=== PATIENT | female | born 1985 | race African-American/Black ===

== ENCOUNTER 2017-01-03 09:28 | Emergency (ER) | payer OTHER ==
[~2017-01-03] VITALS: Ht 152.4 cm; Wt 100.0 kg
[2017-01-03 09:30] VITALS: BP 130/64; PULSE 68; RESP 20; TEMP 98.8; O2SAT 98
[2017-01-03 09:36] VITALS: BP 132/60; PULSE 87; RESP 18; O2SAT 98
[2017-01-03] MEDS ORDERED: PROMETHAZINE HCL 25 MG TAB PO ONE (09:45)
[2017-01-03] MEDS ORDERED: DOXY10TA PO (09:48)
[2017-01-03] MEDS ORDERED: PROM25TA10 PO (09:48)
--- NOTE | 2017-01-03 09:49 | PD ---
HPI Chief Complaint: Related Problem Time Seen by Provider: 09:36 Travel History International Travel<30 days: No Contact w/Intl Traveler<30days: No Traveled to known affect area: No History of Present Illness HPI Patient is a 31-year-old at approximately 10 weeks' gestational age based on early first trimester ultrasound here with complaint of nausea and vomiting. Patient has had hyperemesis with her previous pregnancies. States she is followed by FIELD SUPPORT REPRESENTATIVE Dr. Gallagher, who prescribe Zofran 4 mg every 6 hours. She has been taking this without much improvement and notes persistent nausea and vomiting. She has not had any abdominal pain, vaginal bleeding or leakage of fluid. PFSH Past Medical History Medical History: Denies Significant Hx Hx Anticoagulant Therapy: No Asthma: Yes (CHILDHOOD) Cardiovascular Problems: No Chemotherapy: No Cerebrovascular Accident: No Diabetes: No Diminished Hearing: No Respiratory: No Tetanus Vaccination: > 5 Years Influenza Vaccination: No ?: : 2 Para: 2 Miscarriage: 0 : 0 Ectopic : No Tubal Ligation: No Past Surgical History Surgical History: No Previous Surgery Genitourinary Surgery: Yes (BARTHOLIN CYST; SEEMS NOT TO HAVE BEEN REMOVED) Hysterectomy: No Social History Alcohol Use: No Tobacco Use: No Substance Use: No Allergies-Medications (Allergen,Severity, Reaction): Coded Allergies: No Known Allergies (Verified , 12/19/15) Reported Meds & Prescriptions Reported Meds & Active Scripts Active Diclegis (Doxylamine-Pyridoxine) 10-10 Mg Tab 1 Tab PO DIRECTED 30 Days 2 tab po hs day 1. If symptoms persist, 1 tab in am + 2 tab hs day 2. If symptoms persist, 1 tab in am + 1 tab noon + 2 tab hs day 3. Phenergan (Promethazine HCl) 25 Mg Tablet 25 Mg PO Q6H PRN Review of Systems Except as stated in HPI: all other systems reviewed are Neg Physical Exam Narrative GENERAL: Well-appearing female in no acute distress SKIN: Focused skin assessment warm/dry. HEAD: Normocephalic. EYES: No scleral icterus. No injection or drainage. ENT: Mucous membranes pink and moist. CARDIOVASCULAR: Regular rate and rhythm RESPIRATORY: No accessory muscle use. GASTROINTESTINAL: Abdomen soft, non-tender, nondistended. MUSCULOSKELETAL: Normal gait NEUROLOGICAL: Awake and alert. Normal speech. PSYCHIATRIC: Appropriate mood and affect; insight and judgment normal. Data Data Last Documented VS Vital Signs Date Time Temp Pulse Resp B/P Pulse Ox O2 Delivery O2 Flow Rate FiO2 01/03/17 09:36 87 18 132/60 98 Room Air 01/03/17 09:30 98.8 Orders Promethazine (Phenergan) (01/03/17 09:45) MDM Medical Decision Making Medical Screen Exam Complete: Yes Emergency Medical Condition: Yes Medical Record Reviewed: Yes Differential Diagnosis 31-year-old at approximately 10 weeks' gestational age here with complaint of nausea, vomiting. Differential includes associated nausea, hyperemesis gravidarum. She does not have any cyst and abdominal pain, fevers, chills or other systemic symptoms to suggest infection or peritoneal pathology. Narrative Course Patient given dose of oral Phenergan here with improvement of her symptoms. We' ll discharge to home with Phenergan, Diciglis alternating with Zofran when necessary for nausea vomiting outpatient BUN follow-up. Diagnosis Primary Impression: Hyperemesis gravidarum Referrals: Luis Felipe Gallagher MD call for appointment Additional Instructions: Zofran, Phenergan as needed for nausea and vomiting. Diclegis as prescribed. Follow-up with FIELD SUPPORT REPRESENTATIVE as discussed. Med/Other Pt SpecificInfo: Prescription(s) given Scripts Doxylamine-Pyridoxine (Diclegis)10-10 Mg Tab1 Tab PO DIRECTED 30 Days 2 tab po hs day 1. If symptoms persist, 1 tab in am + 2 tab hs day 2. If symptoms persist, 1 tab in am + 1 tab noon + 2 tab hs day 3. Prov:Clarita Rodriguez MD 01/03/17 Promethazine (Phenergan)25 Mg [id number] Mg PO Q6H PRN (NAUSEA OR VOMITING) #10 TAB Ref 0 Prov:Clarita Rodriguez MD 01/03/17 Disposition: 01 DISCHARGE HOME Condition: Stable Clarita Rodriguez MD Jan 03, 2017 09:49
== END 2017-01-03 10:22 | disposition home or self-care (01) ==
LOC: NEPD 09:28
DX: O21.0 Mild hyperemesis gravidarum (principal)
CPT/HCPCS: 99284; Q0169

== ENCOUNTER 2017-02-08 17:54 | Emergency (ER) | payer MEDICAID, OTHER ==
[~2017-02-08] VITALS: Ht 152.4 cm; Wt 78.0 kg
[~2017-02-08 17:54] MED LIST: DOXY10TA PO; PROM25TA10 PO
[2017-02-08 17:56] VITALS: BP 125/59; PULSE 78; RESP 20; TEMP 99; O2SAT 99
--- NOTE | 2017-02-08 18:15 | PD ---
HPI . right shoulder pain Chief Complaint: Pain: Acute or Chronic Time Seen by Provider: 18:14 Travel History International Travel<30 days: No Contact w/Intl Traveler<30days: No Traveled to known affect area: No History of Present Illness HPI 31-year-old female here with complaints of left shoulder pain, but is pointing to her right. When we asked her which shoulder, she once again pointed to her right but was telling me her left. I pointed that out to her and she tells me that several years ago she popped out her right shoulder and it has been hurting more than usual recently. Of note she is 15 weeks , . She tells me Tylenol is not helping her pain and she would like something stronger. She also wants to know if her shoulder is dislocated. PFSH Past Medical History Hx Anticoagulant Therapy: No Asthma: Yes (CHILDHOOD) Cardiovascular Problems: No Chemotherapy: No Cerebrovascular Accident: No Diabetes: No Diminished Hearing: No Respiratory: No : 2 Para: 2 Miscarriage: 0 : 0 Ectopic : No Tubal Ligation: No Past Surgical History Genitourinary Surgery: Yes (BARTHOLIN CYST; SEEMS NOT TO HAVE BEEN REMOVED) Hysterectomy: No Social History Alcohol Use: No Tobacco Use: No Substance Use: No Allergies-Medications (Allergen,Severity, Reaction): Coded Allergies: No Known Allergies (Verified , 12/19/15) Reported Meds & Prescriptions Reported Meds & Active Scripts Active Diclegis (Doxylamine-Pyridoxine) 10-10 Mg Tab 1 Tab PO DIRECTED 30 Days 2 tab po hs day 1. If symptoms persist, 1 tab in am + 2 tab hs day 2. If symptoms persist, 1 tab in am + 1 tab noon + 2 tab hs day 3. Phenergan (Promethazine HCl) 25 Mg Tablet 25 Mg PO Q6H PRN Review of Systems General / Constitutional: No: Fever Eyes: No: Visual changes HENT: No: Headaches Cardiovascular: No: Chest Pain or Discomfort Respiratory: No: Shortness of Breath Gastrointestinal: No: Abdominal Pain Genitourinary: No: Dysuria Musculoskeletal: Positive: Pain (right shoulder pain ) Skin: No Rash Neurologic: No: Weakness Psychiatric: No: Depression Endocrine: No: Polydipsia Hematologic/Lymphatic: No: Easy Bruising Physical Exam Narrative GENERAL: AAO x 3, no acute distress, Well-nourished, well-developed patient. SKIN: Warm and dry. No visible rashes or bruising. HEAD: Normocephalic and atraumatic. EYES: No scleral icterus. No injection or drainage. ENT: No nasal drainage noted. Mucous membranes pink. Airway patent. NECK: Supple, trachea midline. No JVD. CARDIOVASCULAR: Regular rate and rhythm without murmurs, gallops, or rubs. RESPIRATORY: Breath sounds equal bilaterally. No accessory muscle use. No rhonchi or rales. GASTROINTESTINAL:visual inspection normal EXTREMITIES: No cyanosis or edema. Can cross both arms across chest, ROM b/l shoulder normal. BACK: No obvious deformity. NEURO: CN II-12 intact, PSYCH: AAO x 3, normal affect. Data Data Last Documented VS Vital Signs Date Time Temp Pulse Resp B/P Pulse Ox O2 Delivery O2 Flow Rate FiO2 02/08/17 17:56 99.0 78 20 125/59 99 Room Air MDM Medical Decision Making Medical Screen Exam Complete: Yes Emergency Medical Condition: Yes Medical Record Reviewed: Yes Differential Diagnosis Acute on chronic shoulder pain, less likely dislocation, less likely fracture Narrative Course 31-year-old female here with acute on chronic shoulder pain. Patient appears comfortable and is in no distress. Examination is unremarkable. I advised her she can use Tylenol or speak with her COMPLIANCE ADVISOR about stronger pain medication. I've explained to her that ultimately there is nothing else I can do in the emergency room. She does not have a shoulder dislocation and does not require further treatment. Patient verbalized understanding of instructions, questions were answered, and thanked me for their care. I advised them if their condition worsens, please return to the nearest emergency room for further care. Diagnosis Primary Impression: Shoulder pain, right Qualified Code: M25.511 - Chronic right shoulder pain Patient Instructions: General Instructions Additional Instructions: Follow-up with her primary care provider. Follow-up with your COMPLIANCE ADVISOR. Med/Other Pt SpecificInfo: No Change to Meds Disposition: 01 DISCHARGE HOME Condition: Stable Mar Urbina Feb 08, 2017 18:15
== END 2017-02-08 18:37 | disposition home or self-care (01) ==
LOC: NEPK 17:54
DX: O26.899 Other specified pregnancy related conditions, unspecified trimester (principal); M25.511 Pain in right shoulder; G89.29 Other chronic pain; J45.909 Unspecified asthma, uncomplicated; Z79.899 Other long term (current) drug therapy; Z3A.15 15 weeks gestation of pregnancy
CPT/HCPCS: 99282

== ENCOUNTER 2017-02-25 12:13 | Emergency (ER) | payer MEDICAID ==
[~2017-02-25] VITALS: Ht 152.4 cm; Wt 100.0 kg
[2017-02-25 12:23] VITALS: BP 108/57; PULSE 68; RESP 16; TEMP 98.4; O2SAT 100
[2017-02-25] MEDS ORDERED: DOCO200C (12:33)
[2017-02-25] MEDS ORDERED: SODIUM CHLOR 0.9% 1000 ML INJ 1,000 ML IV ONE (12:45)
--- NOTE | 2017-02-25 12:50 | PD ---
HPI Chief Complaint: Related Problem Time Seen by Provider: 12:30 Travel History International Travel<30 days: No Contact w/Intl Traveler<30days: No Traveled to known affect area: No History of Present Illness HPI This is a 31-year-old female who presents to the emergency department 17 weeks not feeling well. She says that at work her lower abdomen started to cramp and she started to feel lightheaded, moderate severity, constant. She says she's been having these symptoms for 3 weeks. She told her machine pan greaser about it. He didn't say much. She says during her second she also had similar symptoms. She just says she feels really tired and doesn't feel well. She denies any vaginal bleeding, dysuria, diarrhea, vaginal discharge or fever PFSH Past Medical History Hx Anticoagulant Therapy: No Asthma: Yes (CHILDHOOD) Cardiovascular Problems: No Chemotherapy: No Cerebrovascular Accident: No Diabetes: No Diminished Hearing: No Respiratory: No ?: LMP: 17 WEEKS : 3 Para: 2 Miscarriage: 0 : 0 Ectopic : No Tubal Ligation: No Past Surgical History Genitourinary Surgery: Yes (BARTHOLIN CYST; SEEMS NOT TO HAVE BEEN REMOVED) Hysterectomy: No Social History Alcohol Use: No Tobacco Use: No Substance Use: No Allergies-Medications (Allergen,Severity, Reaction): Coded Allergies: No Known Allergies (Verified , 02/25/17) Reported Meds & Prescriptions Reported Meds & Active Scripts Active Diclegis (Doxylamine-Pyridoxine) 10-10 Mg Tab 1 Tab PO DIRECTED 30 Days 2 tab po hs day 1. If symptoms persist, 1 tab in am + 2 tab hs day 2. If symptoms persist, 1 tab in am + 1 tab noon + 2 tab hs day 3. Reported Dha (Docosahexaenoic Acid) 200 Mg Cap Review of Systems Except as stated in HPI: all other systems reviewed are Neg Physical Exam Narrative GENERAL:Well appearing, no acute distress SKIN: Focused skin assessment warm and dry. HEAD: Atraumatic. Normocephalic. EYES: Pupils equal and round. No injection or drainage. ENT: Moist mucous membranes NECK: Trachea midline. CARDIOVASCULAR: Regular rate and rhythm. No murmur appreciated. RESPIRATORY: Clear to auscultation. Breath sounds equal bilaterally. GASTROINTESTINAL: Abdomen soft, mildly tender to palpation in the lower abdomen with no rebound or guarding. MUSCULOSKELETAL: No obvious deformities. NEUROLOGICAL: Awake and alert. No obvious cranial nerve deficits. Moving all extremities. PSYCHIATRIC: Appropriate mood and affect; insight and judgment normal. Data Data Last Documented VS Vital Signs Date Time Temp Pulse Resp B/P Pulse Ox O2 Delivery O2 Flow Rate FiO2 02/25/17 12:23 98.4 68 16 108/57 100 Orders Complete Blood Count With Diff (02/25/17 12:40) Comprehensive Metabolic Panel (02/25/17 12:40) ^ Insert Iv (02/25/17 12:40) Sodium Chlor 0.9% 1000 Ml Inj (Ns 1000 M (02/25/17 12:45) Urinalysis - C+S If Indicated (02/25/17 12:40) Ed Poc Ultrasound (02/25/17 ) Labs Laboratory Tests Test 02/25/17 12:50 White Blood Count 11.9 TH/MM3 Red Blood Count 3.89 MIL/MM3 Hemoglobin 11.7 GM/DL Hematocrit 35.3 % Mean Corpuscular Volume 90.7 FL Mean Corpuscular Hemoglobin 30.0 PG Mean Corpuscular Hemoglobin 33.1 % Concent Red Cell Distribution Width 13.4 % Platelet Count 342 TH/MM3 Mean Platelet Volume 8.0 FL Neutrophils (%) (Auto) 63.3 % Lymphocytes (%) (Auto) 28.7 % Monocytes (%) (Auto) 5.6 % Eosinophils (%) (Auto) 2.0 % Basophils (%) (Auto) 0.4 % Neutrophils # (Auto) 7.6 TH/MM3 Lymphocytes # (Auto) 3.4 TH/MM3 Monocytes # (Auto) 0.7 TH/MM3 Eosinophils # (Auto) 0.2 TH/MM3 Basophils # (Auto) 0.0 TH/MM3 CBC Comment DIFF FINAL Differential Comment Urine Color YELLOW Urine Turbidity CLEAR Urine pH 6.0 Urine Specific Usk 1.031 Urine Protein NEG mg/dL Urine Glucose (UA) NEG mg/dL Urine Ketones NEG mg/dL Urine Occult Blood NEG Urine Nitrite NEG Urine Bilirubin NEG Urine Leukocyte Esterase NEG Urine RBC 0-3 /hpf Urine WBC 0-2 /hpf Urine Squamous Epithelial 0-5 /hpf Cells Urine Amorphous Sediment FEW Urine Bacteria FEW /hpf Microscopic Urinalysis Comment CULT NOT INDICATED Sodium Level 140 MEQ/L Potassium Level 3.8 MEQ/L Chloride Level 107 MEQ/L Carbon Dioxide Level 24.0 MEQ/L Anion Gap 9 MEQ/L Blood Urea Nitrogen 8 MG/DL Creatinine 0.60 MG/DL Estimat Glomerular Filtration 140 ML/MIN Rate Random Glucose 69 MG/DL Calcium Level 9.0 MG/DL Total Bilirubin 0.3 MG/DL Aspartate Amino Transf 14 U/L (AST/SGOT) Alanine Aminotransferase 19 U/L (ALT/SGPT) Alkaline Phosphatase 60 U/L Total Protein 7.1 GM/DL Albumin 2.8 GM/DL MDM Medical Decision Making Medical Screen Exam Complete: Yes Emergency Medical Condition: Yes Interpretation(s) Afebrile, no tachycardia, normotensive Mild leukocytosis Electrolytes are reassuring Urinalysis: Few bacteria Differential Diagnosis Dehydration, electrolyte abnormality, urinary tract infection Narrative Course This is a 31-year-old female who presents to the emergency department with fatigue, lightheadedness and abdominal discomfort in the setting of . She says she's been having these symptoms for 3 weeks and she had them in her prior as well. I don't suspect a surgical etiology for her symptoms and she is quite well-appearing. Labs are obtained which are reassuring. She does have a few bacteria on urinalysis so I'll treat her with antibiotics. She is given a liter of fluids and feels much better. I think she can be discharged home to follow up with her machine pan greaser. Procedures Procedure Narrative [id number] ultrasound: Active intrauterine fetus with a heart rate of 132 Diagnosis Primary Impression: Qualified Code: Z3A.17 - 17 weeks gestation of Additional Impression: Asymptomatic bacteriuria Patient Instructions: General Instructions Additional Instructions: If you develop fever, persistent vomiting, back pain, or inability to eat return to the emergency department as your urine infection may have progressed to a kidney infection. Complete your antibiotics as prescribed. Stay well hydrated with Gatorade or water. Followup with your primary care physician in 2-3 days if your symptoms have not resolved. Med/Other Pt SpecificInfo: Prescription(s) given Scripts Cephalexin (Keflex)500 Mg [id number] Mg PO Q12H 7 Days Ref 0 Prov:Isabel Young MD 02/25/17 Disposition: 01 DISCHARGE HOME Condition: Stable Isabel Young MD Feb 25, 2017 12:50
[2017-02-25 12:58] LABS: AUTOMATED NEUTROPHIL # 7.6 TH/MM3 (1.8-7.7); BASOPHIL % 0.4 % (0.0-2.0); EOSINOPHIL # 0.2 TH/MM3 (0-0.4); HEMATOCRIT 35.3 % (35.0-46.0); LYMPH % 28.7 % (9.0-44.0); LYMPHOCYTE # 3.4 TH/MM3 (1.0-4.8); MEAN CELL VOLUME 90.7 FL (80.0-100.0); MEAN CORPUSCULAR HGB CONC 33.1 % (32.0-36.0); MONO % 5.6 % (0.0-8.0); NEUT % 63.3 % (16.0-70.0); PLATELET COUNT 342 TH/MM3 (150-450); RED BLOOD COUNT 3.89 MIL/MM3 (4.00-5.30); RED CELL DISTRIBUTION WIDTH 13.4 % (11.6-17.2); WHITE BLOOD COUNT 11.9 TH/MM3 (4.0-11.0)
[2017-02-25 13:05] LABS: BLOOD, URINE NEG (NEG); GLUCOSE,URINE NEG (NEG); KETONE, URINE NEG (NEG); NITRITE,URINE NEG (NEG)
[2017-02-25 13:06] LABS: CHLORIDE 107 MEQ/L (98-107); HEMO FLAGS DIFF FINAL; POTASSIUM 3.8 MEQ/L (3.5-5.1); SODIUM (NA) 140 MEQ/L (136-145)
[2017-02-25 13:10] LABS: URINE COLOR YELLOW (YELLW/STRAW)
[2017-02-25 13:11] LABS: BACTERIA, URINE FEW /hpf; COMMENT (UR) CULT NOT INDICATED; CULTURE IF INDICATED CULT NOT INDICATED; RBC, URINE 0-3 /hpf (0-3); SQUAMOUS EPITHELIAL CELL URINE 0-5 /hpf (0-5); WBC, URINE 0-2 /hpf (0-5)
[2017-02-25 13:13] LABS: ANION GAP 9 MEQ/L (5-15); BLOOD UREA NITROGEN 8 MG/DL (7-18)
[2017-02-25 13:16] LABS: ALT (GPT) 19 U/L (10-53); AST (GOT) 14 U/L (15-37); GLOMERULAR FILTRATION RATE 140 ML/MIN (>89)
[2017-02-25 13:17] LABS: TOTAL BILIRUBIN ADULT 0.3 MG/DL (0.2-1.0)
[2017-02-25 13:19] LABS: ALKALINE PHOSPHATASE 60 U/L (45-117)
[2017-02-25] MEDS ORDERED: CEPH-460 PO (13:33)
== END 2017-02-25 13:47 | disposition home or self-care (01) ==
LOC: PHED 12:13
DX: O26.892 Other specified pregnancy related conditions, second trimester (principal); R82.71 Bacteriuria; R42 Dizziness and giddiness; Z3A.17 17 weeks gestation of pregnancy
CPT/HCPCS: 80053; 81001; 85025; 96360; 99284; J7030

== ENCOUNTER 2017-04-15 10:33 | Emergency (ER) | payer MEDICAID ==
[~2017-04-15 10:33] MED LIST changes: +CEPH-460 PO; +DOCO200C; -PROM25TA10 PO
[2017-04-15] MEDS ORDERED: LACTATED RINGER'S 1000 ML INJ 1,000 ML IV SCH (11:12)
[2017-04-15] MEDS ORDERED: ONDANSETRON HCL 4 MG/2 ML VIAL IV ONE (11:15)
[2017-04-15] MEDS ORDERED: PROM25TA10 PO (11:21)
[2017-04-15] MEDS ORDERED: PROM1SUP7 RECTAL (11:21)
--- NOTE | 2017-04-15 11:22 | PD ---
HPI Chief Complaint Cramping pain lower abdominal and low back pain nausea and vomiting Date Seen: Apr 15, 2017 Time Seen: 11:10 Travel History International Travel<30 Days: No Contact w/Intl Traveler<30Days: No Known Affected Area: No History of Present Illness HPI Patient is 32-year-old black female [address] Gallagher for care she presents complaining of long-term lower abdominal pain and cramping for months and also lower back pain long-term but today and yesterday particularly bad. She denies leakage or bleeding. The heart tones are reactive she is not adolfo, urine dip is negative, significant nausea and vomiting throughout her is unlikely just at home that's her only medication. She tried some Tylenol as well as home today Weeks Gestation: 24 Para: 2 : 3 History Obstetric History Obstetric History 2 vaginal deliveries Social History Alcohol Use: No Tobacco Use: No Substance Abuse: No Allergies-Medications (Allergen,Severity, Reaction): Coded Allergies: No Known Allergies (Verified , 02/25/17) Home Meds Active Scripts Cephalexin (Keflex) 500 Mg Cap, 500 MG PO Q12H for Infection for 7 Days, CAP 0 Refills Prov:Isabel Young MD 02/25/17 Doxylamine-Pyridoxine (Diclegis) 10-10 Mg Tab, 1 TAB PO DIRECTED for 30 Days 2 tab po hs day 1. If symptoms persist, 1 tab in am + 2 tab hs day 2. If symptoms persist, 1 tab in am + 1 tab noon + 2 tab hs day 3. Prov:Clarita Rodriguez MD 01/03/17 Reported Medications Docosahexaenoic Acid ( Dha) 200 Mg Cap 02/25/17 Review of Systems General / Constitutional: No: Fever, Weight Gain, Chills, Other Eyes: No: Diploplia, Blurred Vision, Visual changes, Pain, Photophobia HENT: No: Headaches, Vertigo, Lightheadedness Cardiovascular: No: Irregular Rhythm, Chest Pain or Discomfort, Palpitations, Tachycardia, Syncope, Varicosities, Edema, Cyanosis Respiratory: No: Cough, Short of Breath, Other Gastrointestinal: Nausea, Vomiting, Abdominal Pain, No: Diarrhea Genitourinary: No: Decreased Urinary Output, Oliguria Musculoskeletal: No: Limited ROM, Weakness, Cramping, Edema, Pain Skin: No Rash, No Itching, No Dryness, No Lumps, No Change in Pigmentation, No Change in Nails, No Alopecia, No Lesions Neurologic: No: Weakness, Dizziness, Syncope, Focal Abnormalities, Coordination Problem, Headache, Slurred Speech, Seizures Psychiatric: No: Depression, Suicidal Ideations, Homicidal Ideation Endocrine: No: Heat Intolerance, Cold Intolerance, Polydipsia, Polyuria, Other Physical Exam Narrative GENERAL: Well-nourished, well-developed patient. SKIN: Warm and dry. HEAD: Normocephalic and atraumatic. EYES: No scleral icterus. No injection or drainage. ENT: No nasal drainage noted. Mucous membranes pink. Airway patent. NECK: Supple, trachea midline. No JVD. CARDIOVASCULAR: Regular rate and rhythm without murmurs, gallops, or rubs. RESPIRATORY: Breath sounds equal bilaterally. No accessory muscle use. BREASTS: Bilateral exam showed no masses , no retractions, no nipple discharge. ABDOMEN/GI: Abdomen soft, non-tender, bowel sounds present, no rebound, no guarding Gravid to [-24] weeks size Fundal Height: [24-] GENITOURINARY: External Genitalia: intact and normal in appearance BUS glands: [-] Cervix: [-] Dilatation: [Closed-] Effacement: [-] Thick Station: [-3] -] Membranes: [intact ] Uterine Contractions: [none-] FHT's: Category: [1-] Baseline: [133-] Reactive: [yes-] Variability: [-mod] Decels: [-none] EXTREMITIES: No cyanosis or edema. BACK: Nontender without obvious deformity. No CVA tenderness. NEUROLOGICAL: Awake and alert. Motor and sensory grossly within normal limits. Five out of 5 muscle strength in all muscle groups. Normal speech. Data Data Orders Orders Vital Signs (Adult) .ON ADMISSION (04/15/17 11:12) ^ Labor Status (04/15/17 11:12) Lactated Ringer's 1000 Ml Inj (Lr 1000 M (04/15/17 11:12) Ondansetron Inj (Zofran Inj) (04/15/17 11:15) Fentanyl Inj (Fentanyl Inj) (04/15/17 11:15) Labs Urine dip positive for ketones otherwise negative MDM Interpretation(s) Patient is 32-year-old black female at 24 weeks presents complaining of lower abdominal pain and low back pain and nausea and vomiting. She has no bleeding or leakage of fluid no contractions and heart rate is reactive, cervix is closed thick and high, urinalysis is negative on dipstick, patient's had the similar cramps and low back pain the whole assisted was little worse yesterday. She took some Tylenol and did not get better Plan Plan is IV hydrate IV Zofran. The patient wants pain medication she'll find a ride home she drove herself to the hospital. Home prescriptions for Phenergan by mouth and suppository. Upper follow-up with Dr. Gallagher in the usual fashion sooner when necessary symptoms Diagnosis Diagnosis: Primary Impression: Abdominal pain during in second trimester Additional Impression: Nausea and vomiting of , antepartum Disposition: 01 DISCHARGE HOME Condition: Stable Scripts Promethazine Supp (Phenergan Supp) 25 Mg Supp 25 MG RECTAL Q6H Y for NAUSEA OR VOMITING, #6 SUPP 0 Refills Prov: Emmanuel Pineda II, MD 04/15/17 Promethazine (Phenergan) 25 Mg Tablet 25 MG PO Q6H Y for NAUSEA OR VOMITING, #30 TAB 0 Refills Prov: Emmanuel Pineda II, MD 04/15/17 Emmanuel Pineda II, MD Apr 15, 2017 11:22
== END 2017-04-15 12:10 | disposition home or self-care (01) ==
LOC: HOBED 10:33
DX: O21.9 Vomiting of pregnancy, unspecified (principal); R10.30 Lower abdominal pain, unspecified; M54.5 Low back pain
CPT/HCPCS: 96374; 99284; J2405; J7120

== ENCOUNTER 2017-04-28 18:56 | Emergency (ER) | payer MEDICAID ==
[~2017-04-28 18:56] MED LIST changes: +PROM1SUP7 RECTAL; +PROM25TA10 PO
--- NOTE | 2017-04-28 19:43 | PD ---
HPI Chief Complaint Patient fell at home against the bathtub Date Seen: Apr 28, 2017 Time Seen: 19:25 Travel History International Travel<30 Days: No Contact w/Intl Traveler<30Days: No Known Affected Area: No History of Present Illness HPI Patient is 32-year-old black female at [address] Gallagher she presents after having fallen at home and hit her side against the bathtub. She has had some tenderness now but has had no bleeding or leakage of fluid. heart tones are within normal limits 26 weeks sees a little hard to monitor. No contractions seen Weeks Gestation: 26 Para: 2 : 3 History Obstetric History Obstetric History 2 vaginal deliveries Social History Alcohol Use: No Tobacco Use: No Substance Abuse: No Allergies-Medications (Allergen,Severity, Reaction): Coded Allergies: No Known Allergies (Verified , 02/25/17) Home Meds Active Scripts Promethazine Supp (Phenergan Supp) 25 Mg Supp, 25 MG RECTAL Q6H Y for NAUSEA OR VOMITING, #6 SUPP 0 Refills Prov:Emmanuel Pineda II, MD 04/15/17 Promethazine (Phenergan) 25 Mg Tablet, 25 MG PO Q6H Y for NAUSEA OR VOMITING, # 30 TAB 0 Refills Prov:Emmanuel Pineda II, MD 04/15/17 Cephalexin (Keflex) 500 Mg Cap, 500 MG PO Q12H for Infection for 7 Days, CAP 0 Refills Prov:Isabel Young MD 02/25/17 Doxylamine-Pyridoxine (Diclegis) 10-10 Mg Tab, 1 TAB PO DIRECTED for 30 Days 2 tab po hs day 1. If symptoms persist, 1 tab in am + 2 tab hs day 2. If symptoms persist, 1 tab in am + 1 tab noon + 2 tab hs day 3. Prov:Clarita Rodriguez MD 01/03/17 Reported Medications Docosahexaenoic Acid ( Dha) 200 Mg Cap 02/25/17 Review of Systems General / Constitutional: No: Fever, Weight Gain, Chills, Other Eyes: No: Diploplia, Blurred Vision, Visual changes, Pain, Photophobia HENT: No: Headaches, Vertigo, Lightheadedness Cardiovascular: No: Irregular Rhythm, Chest Pain or Discomfort, Palpitations, Tachycardia, Syncope, Varicosities, Edema, Cyanosis Respiratory: No: Cough, Short of Breath, Other Gastrointestinal: No: Nausea, Vomiting, Diarrhea Genitourinary: No: Decreased Urinary Output, Oliguria Musculoskeletal: No: Limited ROM, Weakness, Cramping, Edema, Pain Skin: No Rash, No Itching, No Dryness, No Lumps, No Change in Pigmentation, No Change in Nails, No Alopecia, No Lesions Neurologic: No: Weakness, Dizziness, Syncope, Focal Abnormalities, Coordination Problem, Headache, Slurred Speech, Seizures Psychiatric: No: Depression, Suicidal Ideations, Homicidal Ideation Endocrine: No: Heat Intolerance, Cold Intolerance, Polydipsia, Polyuria, Other Physical Exam Narrative GENERAL: Well-nourished, well-developed obese patient. SKIN: Warm and dry. HEAD: Normocephalic and atraumatic. EYES: No scleral icterus. No injection or drainage. ENT: No nasal drainage noted. Mucous membranes pink. Airway patent. NECK: Supple, trachea midline. No JVD. CARDIOVASCULAR: Regular rate and rhythm without murmurs, gallops, or rubs. RESPIRATORY: Breath sounds equal bilaterally. No accessory muscle use. BREASTS: Bilateral exam showed no masses , no retractions, no nipple discharge. ABDOMEN/GI: Abdomen soft, non-tender, bowel sounds present, no rebound, no guarding Gravid to [26-] weeks size Fundal Height: [-26] GENITOURINARY: Membranes: [intact ] Uterine Contractions: [-none] FHT's: Category: [1-] Baseline: [133-] Reactive: [-yes for 26 weeks] Variability: [-mod] Decels: [-0] EXTREMITIES: No cyanosis or edema. BACK: Nontender without obvious deformity. No CVA tenderness. NEUROLOGICAL: Awake and alert. Motor and sensory grossly within normal limits. Five out of 5 muscle strength in all muscle groups. Normal speech. MDM Interpretation(s) Patient is 32-year-old black female at 26 weeks who fell at home with this evening and hit her side against the bathtub. She has tenderness on that side but otherwise no other injury, there is no bruising ,breakage of the skin, lesions seen. heart rate is reactive at 26 weeks. No contractions seen Plan Plan is to observe for 1 hour and if the baby looks with THE MONITOR DURING THAT TIME WILL DISCHARGE HOME TO [facility]EDREST Diagnosis Diagnosis: Primary Impression: Fall Additional Impression: 26 weeks gestation of Disposition: 01 DISCHARGE HOME Condition: Stable Emmanuel Pineda II, MD Apr 28, 2017 19:43
== END 2017-04-28 20:30 | disposition home or self-care (01) ==
LOC: HOBED 18:56
DX: O9A.212 Injury, poisoning and certain other consequences of external causes complicating pregnancy, second trimester (principal); W18.09XA Striking against other object with subsequent fall, initial encounter; Y92.002 Bathroom of unspecified non-institutional (private) residence as the place of occurrence of the external cause; Z3A.26 26 weeks gestation of pregnancy
CPT/HCPCS: 99283

== ENCOUNTER 2017-05-14 20:27 | Emergency (ER) | payer MEDICAID ==
[2017-05-14] MEDS ORDERED: LOPERAMIDE HCL 2 MG CAP PO ONE (21:45)
--- NOTE | 2017-05-14 22:04 | PD ---
HPI Chief Complaint cramping and diarrhea Date Seen: May 14, 2017 Time Seen: 21:45 Travel History International Travel<30 Days: No Contact w/Intl Traveler<30Days: No Known Affected Area: No History of Present Illness HPI PT is a 32 y/o with IUP at 28.6 wks who presents for evaluation of abdominal cramping and diarrhea. PT states that after work, she had intense abdominal pain/cramping, followed by diarrhea. She subsequently had another episode of diarrhea. Pt denies n/v. She is tolerating po liquids but reports decreased appetite. denies fever, sick contacts. denies dysuria. Pt states she ate at [employer] for lunch. Pt denies contractions, vb, lof. +FM Weeks Gestation: 28 Para: 2 : 3 History Past Medical History Medical History: Denies Significant Hx Obstetric History Obstetric History 2006 FTSVD 2012 FTSVD Past Surgical History Narrative Surgical bartholin's cyst I Family History Family History: Negative Social History Alcohol Use: No Tobacco Use: No Substance Abuse: No Allergies-Medications (Allergen,Severity, Reaction): Coded Allergies: No Known Allergies (Verified , 02/25/17) Home Meds Active Scripts Promethazine Supp (Phenergan Supp) 25 Mg Supp, 25 MG RECTAL Q6H Y for NAUSEA OR VOMITING, #6 SUPP 0 Refills Prov:Emmanuel Pineda II, MD 04/15/17 Promethazine (Phenergan) 25 Mg Tablet, 25 MG PO Q6H Y for NAUSEA OR VOMITING, # 30 TAB 0 Refills Prov:Emmanuel Pineda II, MD 04/15/17 Cephalexin (Keflex) 500 Mg Cap, 500 MG PO Q12H for Infection for 7 Days, CAP 0 Refills Prov:Isabel Young MD 02/25/17 Doxylamine-Pyridoxine (Diclegis) 10-10 Mg Tab, 1 TAB PO DIRECTED for 30 Days 2 tab po hs day 1. If symptoms persist, 1 tab in am + 2 tab hs day 2. If symptoms persist, 1 tab in am + 1 tab noon + 2 tab hs day 3. Prov:Clarita Rodriguez MD 01/03/17 Reported Medications Docosahexaenoic Acid ( Dha) 200 Mg Cap 8/2/17 Review of Systems General / Constitutional: No: Fever, Chills Eyes: No: Diploplia, Blurred Vision, Visual changes, Pain, Photophobia, Other HENT: No: Headaches, Vertigo, Dental Difficulties, Lightheadedness, Other Cardiovascular: No: Irregular Rhythm, Chest Pain or Discomfort, Palpitations, Tachycardia, Syncope, Varicosities, Edema, Cyanosis, Other Respiratory: No: Cough, Short of Breath, Wheezing, Other Gastrointestinal: Diarrhea, Abdominal Pain Genitourinary: No: Urgency, Frequency, Dysuria, Nocturia, Hematuria, Decreased Urinary Output, Oliguria, Hesitancy, Dribbling, Incontinence, Pelvic Pain, Dyspareunia, Discharge, Menorrhagia, Vaginal Bleeding, Other Musculoskeletal: No: Limited ROM, Weakness, Cramping, Edema, Pain, Other Skin: No Rash, No Itching, No Dryness, No Lumps, No Change in Pigmentation, No Change in Nails, No Alopecia, No Lesions, No Breast Lumps, No Breast Tenderness , No Breast Swelling, No Other Neurologic: No: Weakness, Dizziness, Syncope, Focal Abnormalities, Coordination Problem, Headache, Slurred Speech, Seizures, Other Psychiatric: No: Anxiety, Depression, Suicidal Ideations, Disorder of Thought, Mood Disorder, Substance Abuse, Homicidal Ideation, Other Endocrine: No: Heat Intolerance, Cold Intolerance, Polydipsia, Polyuria, Other Hematologic/Lymphatic: No Easy Bruising, No Lymph Node Enlargement, No Other Physical Exam 118/57, 78, 18, 98.6 Narrative GENERAL: Well-nourished, well-developed patient. SKIN: Warm and dry. HEAD: Normocephalic and atraumatic. EYES: No scleral icterus. No injection or drainage. ENT: No nasal drainage noted. Mucous membranes pink. Airway patent. NECK: Supple, trachea midline. No JVD. CARDIOVASCULAR: Regular rate and rhythm without murmurs, gallops, or rubs. RESPIRATORY: Breath sounds equal bilaterally. No accessory muscle use. ABDOMEN/GI: Abdomen soft, non-tender, bowel sounds present, no rebound, no guarding Gravid GENITOURINARY: External Genitalia: intact and normal in appearance BUS glands: [wnl] Cervix: post Dilatation: closed Effacement: thick Station: high Presentation: - Membranes: intact Uterine Contractions: none FHT's: Category: - Baseline: 120 Reactive: no, reassuring for gest age Variability: mod Decels: - EXTREMITIES: No cyanosis or edema. BACK: Nontender without obvious deformity. No CVA tenderness. NEUROLOGICAL: Awake and alert. Motor and sensory grossly within normal limits. Five out of 5 muscle strength in all muscle groups. Normal speech. Data Data Vital Signs Reviewed: Yes Orders Orders Vital Signs (Adult) .ON ADMISSION (05/14/17 21:42) ^ Labor Status (05/14/17 21:42) ^ Hydration (05/14/17 21:42) Loperamide (Imodium) (05/14/17 21:45) Labs urine dip: trace protein, otherwise neg MDM Medical Record Reviewed: Yes Narrative Course / MDM 32 y/o with IUP at 28.6 wks with diarrhea and cramping --suspect gastroenteritis (versus food intolerance/food poisoning) --pt able to tolerate PO --immodium x 1 now --advised rest, hydration --return if symptoms worsen/persist Plan d/c home Diagnosis Diagnosis: Primary Impression: Gastroenteritis Additional Impression: 28 weeks gestation of Disposition: 01 DISCHARGE HOME Condition: Stable Patient Instructions: Abdominal Pain in (ED), Movement (ED) Jerod Restrepo MD May 14, 2017 22:04
== END 2017-05-14 22:15 | disposition home or self-care (01) ==
LOC: HOBED 20:27
DX: O99.613 Diseases of the digestive system complicating pregnancy, third trimester (principal); K52.9 Noninfective gastroenteritis and colitis, unspecified; Z3A.28 28 weeks gestation of pregnancy
CPT/HCPCS: 99284

== ENCOUNTER 2017-05-30 12:01 | Emergency (ER) | payer MEDICAID ==
[2017-05-30 12:04] VITALS: BP 109/64; PULSE 81; RESP 14; TEMP 99; O2SAT 100
--- NOTE | 2017-05-30 12:58 | PD ---
HPI Chief Complaint: Cold / Flu Symptoms Time Seen by Provider: 12:37 Travel History International Travel<30 days: No Contact w/Intl Traveler<30days: No Traveled to known affect area: No History of Present Illness HPI 32-year-old female, approximately 31 weeks , presents to emergency Department with complaint of cough, nasal congestion, sore throat 3 days. Reports body aches. Denies fevers, ear pain, shortness of breath, wheezing, chest pain. Denies abdominal pain, abdominal cramping, vaginal discharge, vaginal leakage, vaginal bleeding. Denies vomiting. movement is normal. Has been taking Tylenol for symptom management. Symptoms are mild in severity. No known allergies. Has no medical complaints. No other modifying factors or associated signs and symptoms. PFSH Past Medical History Hx Anticoagulant Therapy: No Asthma: Yes (CHILDHOOD) Cardiovascular Problems: No Chemotherapy: No Cerebrovascular Accident: No Diabetes: No Diminished Hearing: No Respiratory: No Immunizations Current: No ?: : 3 Para: 2 Miscarriage: 0 : 0 Ectopic : No Tubal Ligation: No Past Surgical History Genitourinary Surgery: Yes (BARTHOLIN CYST; SEEMS NOT TO HAVE BEEN REMOVED) Hysterectomy: No Social History Alcohol Use: No Tobacco Use: No Substance Use: No Allergies-Medications (Allergen,Severity, Reaction): Coded Allergies: No Known Allergies (Verified Adverse Reaction, Unknown, 05/30/17) Reported Meds & Prescriptions Reported Meds & Active Scripts Active Phenergan Supp (Promethazine HCl) 25 Mg Supp 25 Mg RECTAL Q6H PRN Phenergan (Promethazine HCl) 25 Mg Tablet 25 Mg PO Q6H PRN Keflex (Cephalexin) 500 Mg Cap 500 Mg PO Q12H 7 Days Diclegis (Doxylamine-Pyridoxine) 10-10 Mg Tab 1 Tab PO DIRECTED 30 Days 2 tab po hs day 1. If symptoms persist, 1 tab in am + 2 tab hs day 2. If symptoms persist, 1 tab in am + 1 tab noon + 2 tab hs day 3. Reported Dha (Docosahexaenoic Acid) 200 Mg Cap Review of Systems Except as stated in HPI: all other systems reviewed are Neg Physical Exam Narrative GENERAL: Well-nourished, well-developed black female patient, in no acute distress; afebrile, nontoxic-appearing SKIN: Warm and dry. No rash. HEAD: Atraumatic. Normocephalic. EYES: Pupils equal and round. No scleral icterus. No injection or drainage. ENT: Mucosa pink and moist. No erythema or exudates. No uvular edema. No uvular , palatal, or tonsillar deviation. Airway patent. EARS: Bilateral pinnae and external canals appear within normal limits. Bilateral tympanic membranes without erythema, dullness or perforation. NECK: Trachea midline. No lymphadenopathy. CARDIOVASCULAR: Regular rate and rhythm. No murmur appreciated. RESPIRATORY: No accessory muscle use. Clear to auscultation. Breath sounds equal bilaterally. No retractions or tachypnea. GASTROINTESTINAL: . MUSCULOSKELETAL: No obvious deformities. No clubbing. No cyanosis. No edema. NEUROLOGICAL: Awake and alert. Oriented 3. No obvious cranial nerve deficits. Motor grossly within normal limits. Normal speech. Moves all extremities. 5/5 strength to all extremities. PSYCHIATRIC: Appropriate mood and affect; insight and judgment normal. Data Data Last Documented VS Vital Signs Date Time Temp Pulse Resp B/P (MAP) Pulse Ox O2 Delivery O2 Flow Rate FiO2 05/30/17 12:04 99.0 81 14 109/64 (79) 100 Orders Orders Group A Rapid Strep Screen (05/30/17 12:26) Influenzae A/B Antigen (05/30/17 12:26) Strep Culture (Group A) (05/30/17 12:30) Ed Discharge Order (05/30/17 12:59) MDM Medical Decision Making Medical Screen Exam Complete: Yes Emergency Medical Condition: Yes Medical Record Reviewed: Yes Differential Diagnosis Influenza, strep pharyngitis, viral illness Narrative Course 32-year-old female with cold/cough/flu symptoms 3 days. Patient is 31 weeks . Denies abdominal pain, cramping; vaginal discharge, bleeding, leakage. Patient is afebrile and nontoxic-appearing. Denies fever, vomiting. Influenza and rapid strep ordered. 1258: Influenza and rapid strep negative. Suspecting viral illness. Discussed viral illness and symptom management. Instructed patient to follow up with eyelet row marker. Instructed patient to follow up with primary care provider. Patient verbalizes understanding and agreement with treatment plan. Patient is medically cleared and stable for discharge. Discussed reasons to return to the emergency department. Patient agrees with treatment plan. The patients vital signs are stable and the patient is stable for outpatient follow- up and treatment. Patient discharged home, stable and in no acute distress. Diagnosis Primary Impression: Viral illness Referrals: Ammonia Nitrate Operator Primary Care Physician Patient Instructions: Cold Symptoms (ED), General Instructions Departure Forms: Tests/Procedures, Work Release Enter return to work date: May 31, 2017 Additional Instructions: Tylenol as instructed and as needed for fever/pain Fdch-riz-ousgddk cough and cold medications as directed and as needed for symptom management Get plenty of sleep/rest Drink plenty of fluids to prevent dehydration; popsicles and Gatorade Use an air humidifier/turn off ceiling fans Follow-up with primary care provider Return immediately to the emergency department with worsening of symptoms Med/Other Pt SpecificInfo: No Change to Meds, No Meds Exist/No RX given Disposition: 01 DISCHARGE HOME Condition: Stable Citlaly Engle May 30, 2017 12:58
== END 2017-05-30 13:18 | disposition home or self-care (01) ==
LOC: NEPK 12:01
DX: O98.513 Other viral diseases complicating pregnancy, third trimester (principal); J02.9 Acute pharyngitis, unspecified; Z3A.31 31 weeks gestation of pregnancy
CPT/HCPCS: 87081; 87804; 87880; 99283

== ENCOUNTER 2017-06-12 11:07 | Emergency (ER) | payer MEDICAID ==
--- NOTE | 2017-06-12 12:03 | PD ---
HPI Chief Complaint Decreased movement, cough Date Seen: Jun 12, 2017 Time Seen: 11:45 Travel History International Travel<30 Days: No Contact w/Intl Traveler<30Days: No Known Affected Area: No History of Present Illness HPI Patient is a 32-year-old at 33 weeks and 0 days who presents with decreased movement. Patient is a patient of Dr. Gallagher, who recommended that the patient presented here to be evaluated. She reports that she has been sick with a cough for 3 weeks. She had a chest x-ray yesterday that was negative for pneumonia. She reports that she has not felt any movement since yesterday around 11 PM. She does report a little mucus on the toilet paper with wiping, but she denies any vaginal bleeding, leakage of fluid, contractions. History Past Medical History Medical History: Denies Significant Hx Obstetric History Obstetric History Patient is a . Her last 2 pregnancies were uncomplicated, full-term, normal birthweight, vaginal deliveries. She has had a lot of nausea and vomiting with this . Past Surgical History Narrative Surgical Bartholin's cyst removal Family History Narrative Family History Her son has asthma and allergies. Social History Narrative Social History Patient lives at home with her 2 children. Alcohol Use: No Tobacco Use: No Substance Abuse: No Allergies-Medications (Allergen,Severity, Reaction): Coded Allergies: No Known Allergies (Verified Adverse Reaction, Unknown, 05/30/17) Home Meds Active Scripts Promethazine Supp (Phenergan Supp) 25 Mg Supp, 25 MG RECTAL Q6H Y for NAUSEA OR VOMITING, #6 SUPP 0 Refills Prov:Emmanuel Pineda II, MD 04/15/17 Promethazine (Phenergan) 25 Mg Tablet, 25 MG PO Q6H Y for NAUSEA OR VOMITING, # 30 TAB 0 Refills Prov:Emmanuel Pineda II, MD 04/15/17 Cephalexin (Keflex) 500 Mg Cap, 500 MG PO Q12H for Infection for 7 Days, CAP 0 Refills Prov:Isabel Young MD 02/25/17 Doxylamine-Pyridoxine (Diclegis) 10-10 Mg Tab, 1 TAB PO DIRECTED for 30 Days 2 tab po hs day 1. If symptoms persist, 1 tab in am + 2 tab hs day 2. If symptoms persist, 1 tab in am + 1 tab noon + 2 tab hs day 3. Prov:Clarita Rodriguez MD 01/03/17 Reported Medications Docosahexaenoic Acid ( Dha) 200 Mg Cap 02/25/17 Review of Systems General / Constitutional: No: Fever, Chills Eyes: No: Visual changes HENT: No: Headaches Cardiovascular: No: Chest Pain or Discomfort, Edema Respiratory: Cough, No: Short of Breath Gastrointestinal: No: Nausea, Vomiting, Abdominal Pain Genitourinary: No: Dysuria Physical Exam 107/63, 95, 20, 98.2 Narrative GENERAL: Well-nourished, well-developed patient. SKIN: Warm and dry. HEAD: Normocephalic and atraumatic. EYES: No scleral icterus. No injection or drainage. ENT: No nasal drainage noted. Mucous membranes pink. Airway patent. NECK: Supple, trachea midline. No JVD. CARDIOVASCULAR: Regular rate and rhythm without murmurs, gallops, or rubs. RESPIRATORY: Breath sounds equal bilaterally. No accessory muscle use. ABDOMEN/GI: Abdomen soft, non-tender, bowel sounds present, no rebound, no guarding Gravid to 33 weeks size GENITOURINARY: Uterine Contractions: none FHT's: Category: Category 1 Baseline: 130 Reactive: No 15 x 15 accelerations, but there were 10 x 10 accelerations Variability: Moderate Decels: None EXTREMITIES: No cyanosis or edema. BACK: Nontender without obvious deformity. No CVA tenderness. NEUROLOGICAL: Awake and alert. Motor and sensory grossly within normal limits. Five out of 5 muscle strength in all muscle groups. Normal speech. Data Data Vital Signs Reviewed: Yes Orders Orders Vital Signs (Adult) .ON ADMISSION (06/12/17 11:52) ^ Labor Status (06/12/17 11:52) ^ Non Stress Test (06/12/17 11:52) ^ Hydration (06/12/17 11:52) Us Ob Bpp Wo Nst (06/12/17 11:52) MDM Plan Patient is a 32-year-old at 33 weeks and 0 days who presents with decreased movement. Patient is a patient of Dr. Gallagher. FHT is category 1 but No 15 x 15 accelerations, but there were 10 x 10 accelerations. 1. Decreased movement -Monitor vitals -Monitor labor status/tocometry -Encourage by mouth hydration -BPP 8 out of 8. Biometry is consistent with known EDC provided by patient. No anomalies seen, although somewhat limited due to maternal body habitus, lie and late gestational age. Normal amniotic fluid. NST being performed in the OB ED now looks more reactive. 2. cough - likely bronchitis with negative chest x-ray yesterday -Supportive care, encourage by mouth hydration -Honey and urre-mkx-xcwejup cough medications as needed d/w Dr. Pineda. Diagnosis Diagnosis: Primary Impression: Decreased movement Additional Impression: Cough Ruled Out: distress affecting delivery Disposition: 01 DISCHARGE HOME Condition: Vijay Mccallum MD R2 Jun 12, 2017 12:03
== END 2017-06-12 13:17 | disposition home or self-care (01) ==
LOC: HOBED 11:07
DX: O36.8130 Decreased fetal movements, third trimester, not applicable or unspecified (principal); R05 Cough; Z3A.33 33 weeks gestation of pregnancy
CPT/HCPCS: 59025; 76816; 76819

== ENCOUNTER → 2017-06-17 | Outpatient (CLI) | payer MEDICAID ==
[~2017-06-17] MED LIST changes: +FAMO20TA2 PO
== END ==
LOC: HPND 07:20
PROVIDERS: ATTEND Obstetrics & Gynecology
DX: O35.8XX0 Maternal care for other (suspected) fetal abnormality and damage, not applicable or unspecified (principal)
CPT/HCPCS: 76825; 76827; 93325

== ENCOUNTER 2017-06-23 07:57 | Emergency (ER) | payer MEDICAID ==
[~2017-06-23] VITALS: Ht 152.4 cm; Wt 102.0 kg
[~2017-06-23 07:57] MED LIST changes: -FAMO20TA2 PO
[2017-06-23 07:59] VITALS: BP 120/56; PULSE 84; RESP 17; TEMP 98.7; O2SAT 98
[2017-06-23 08:09] VITALS: BP 112/68; PULSE 82; RESP 18; TEMP 98.4; O2SAT 98
--- NOTE | 2017-06-23 08:29 | PD ---
HPI Chief Complaint: Cold / Flu Symptoms Time Seen by Provider: 08:20 Travel History International Travel<30 days: No Contact w/Intl Traveler<30days: No Traveled to known affect area: No History of Present Illness HPI 32-year-old female presents to the emergency department with a cough for 4 weeks. States that last night she became congested last night and decided to come to the emergency department. States that she went to [place] urgent [facility] and received chest x-ray x-ray approximate 2 weeks ago which was normal, per patient. Patient states that her cough is nonproductive and she has been using multiple fcje-fqj-ctlcaxm medications such as Robitussin, Mucinex, Zyrtec. She is also received Tessalon Perltomi from her primary care. Patient has consulted with her cognos report developer for her nausea during and has been given 2 medications without relief. She denies fever, chills, chest pain, shortness of breath, abdominal pain. Patient also denies diarrhea. PFSH Past Medical History Hx Anticoagulant Therapy: No Asthma: Yes (CHILDHOOD) Cardiovascular Problems: No Chemotherapy: No Cerebrovascular Accident: No Diabetes: No Diminished Hearing: No Respiratory: No Immunizations Current: No ?: LMP: 34 WEEKS : 3 Para: 2 Miscarriage: 0 : 0 Ectopic : No Tubal Ligation: No Past Surgical History Genitourinary Surgery: Yes (BARTHOLIN CYST; SEEMS NOT TO HAVE BEEN REMOVED) Hysterectomy: No Social History Alcohol Use: No Tobacco Use: No Substance Use: No Allergies-Medications (Allergen,Severity, Reaction): Coded Allergies: No Known Allergies (Verified Adverse Reaction, Unknown, 06/23/17) Reported Meds & Prescriptions Reported Meds & Active Scripts Active Famotidine 20 Mg Tab 20 Mg PO BID Review of Systems Except as stated in HPI: all other systems reviewed are Neg Physical Exam Narrative GENERAL: Well-nourished, well-developed patient. SKIN: Focused skin assessment warm/dry. HEAD: Normocephalic. EYES: No scleral icterus. No injection or drainage. NECK: Supple, trachea midline. No JVD or lymphadenopathy. CARDIOVASCULAR: Regular rate and rhythm without murmurs, gallops, or rubs. RESPIRATORY: Breath sounds equal bilaterally. No accessory muscle use. No wheezes, rales or rhonchi. GASTROINTESTINAL: Abdomen soft, non-tender. MUSCULOSKELETAL: No cyanosis, or edema. Homans sign negative bilaterally BACK: Nontender without obvious deformity. No CVA tenderness. Data Data Last Documented VS Vital Signs Date Time Temp Pulse Resp B/P (MAP) Pulse Ox O2 Delivery O2 Flow Rate FiO2 06/23/17 09:55 06/23/17 09:03 98 21 06/23/17 08:09 98.4 82 18 Room Air Orders Orders Albuterol Neb (Albuterol Neb) (06/23/17 08:30) Famotidine (Pepcid) (06/23/17 08:45) Ed Discharge Order (06/23/17 09:30) [facility] Medical Decision Making Medical Screen Exam Complete: Yes Emergency Medical Condition: Yes Differential Diagnosis Esophagitis versus unexplained cough versus bronchospasm versus reflux versus viral syndrome Narrative Course 32-year-old female presents to the emergency department with a cough for 4 weeks. States that last night she became congested last night and decided to come to the emergency department. States that she went to [place] urgent care and received chest x-ray x-ray approximate 2 weeks ago which was normal, per patient. Patient states that her cough is nonproductive and she has been using multiple tijz-xvn-pnnepbt medications such as Robitussin, Mucinex, Zyrtec. She is also received Tesviv Bryson from her primary care. Patient has consulted with her cognos report developer for her nausea during and has been given 2 medications without relief. She denies fever, chills, chest pain, shortness of breath, abdominal pain. Patient also denies diarrhea. Denies leg pain. Vital signs stable Physical exam findings- erythematous pharynx without tonsillar exudate or hypertrophy. No Cervical adenopathy. Homans sign negative bilaterally Patient has used multiple rswb-cxp-bswrbgj medications and admits to nonbilious , nonbloody vomiting twice a day during the . She is also gone to [place] urgent care and had a chest x-ray which was "normal". Because the patient multiple regimens patient most likely has reflux, bronchospasm, or irritation of the pharynx secondary to the vomiting. Trial of albuterol treatments today to determine if this reduces her cough. Patient continues to cough after the albuterol treatment. We'll avoid out patient treatment with albuterol for now Patient will be discharged with ranitidine and follow up with primary care physician for potential outpatient follow-up with vice president research. Patient understood my discharge instructions and will comply. Diagnosis Primary Impression: Cough Referrals: Ear / Nose / Throat Specialist Primary Care Physician Additional Instructions: Follow-up the primary care physician within 2-3 days. Take ranitidine daily for at least 10 days or until your primary care or cognos report developer advised to stop. He may continue to take Zyrtec for your nasal congestion. Scripts Famotidine (Famotidine) 20 Mg Tab 20 MG PO BID, #30 TAB 0 Refills Prov: Navneet Tineo MD 06/23/17 Disposition: 01 DISCHARGE HOME Condition: Stable Bronwyn Orantes Jun 23, 2017 08:28
[2017-06-23] MEDS: RESP: ALBUTEROL 2.5 MG/3 ML NEB (SCH) NEB ONE ×2 (08:30→08:52)
[2017-06-23] MEDS ORDERED: FAMOTIDINE 20 MG TAB PO ONE (08:45)
[2017-06-23 09:03] VITALS: O2SAT 98
[2017-06-23] MEDS ORDERED: FAMO20TA2 PO (09:30)
== END 2017-06-23 10:23 | disposition home or self-care (01) ==
LOC: NEPD 07:57
DX: R05 Cough (principal)
CPT/HCPCS: 94664; 99283; J7613

== ENCOUNTER 2017-07-09 12:44 | Emergency (ER) | payer MEDICAID ==
[~2017-07-09 12:44] MED LIST changes: -CEPH-460 PO; -DOCO200C; -DOXY10TA PO; +FAMO20TA2 PO; -PROM1SUP7 RECTAL; -PROM25TA10 PO
--- NOTE | 2017-07-09 13:36 | PD ---
HPI Chief Complaint Decreased movement and sharp abdominal pains Date Seen: Jul 09, 2017 Time Seen: 13:30 Travel History International Travel<30 Days: No Contact w/Intl Traveler<30Days: No Known Affected Area: No History of Present Illness HPI Patient is 32-year-old black female 36-[address] Gallagher for care presents complaining of decreased movement and sharp abdominal pains today. Denies bleeding or leakage of fluid. Heart rate tracing is reactive with good accelerations. Variability. And says she's been has patient has started feeling movement of here on OB ED. No regular contractions. Weeks Gestation: 36 Para: 2 : 3 History Obstetric History Obstetric History 2 vaginal deliveries Family History Family History: Social History Alcohol Use: No Tobacco Use: No Substance Abuse: No Allergies-Medications (Allergen,Severity, Reaction): Coded Allergies: No Known Allergies (Verified Adverse Reaction, Unknown, 06/23/17) Home Meds Active Scripts Famotidine (Famotidine) 20 Mg Tab, 20 MG PO BID, #30 TAB 0 Refills Prov:Navneet Tineo MD 06/23/17 Review of Systems General / Constitutional: No: Fever, Weight Gain, Chills, Other Eyes: No: Diploplia, Blurred Vision, Visual changes, Pain, Photophobia HENT: No: Headaches, Vertigo, Lightheadedness Cardiovascular: No: Irregular Rhythm, Chest Pain or Discomfort, Palpitations, Tachycardia, Syncope, Varicosities, Edema, Cyanosis Respiratory: No: Cough, Short of Breath, Other Gastrointestinal: Abdominal Pain, No: Nausea, Vomiting, Diarrhea Genitourinary: No: Decreased Urinary Output, Oliguria Musculoskeletal: No: Limited ROM, Weakness, Cramping, Edema, Pain Skin: No Rash, No Itching, No Dryness, No Lumps, No Change in Pigmentation, No Change in Nails, No Alopecia, No Lesions Neurologic: No: Weakness, Dizziness, Syncope, Focal Abnormalities, Coordination Problem, Headache, Slurred Speech, Seizures Psychiatric: No: Depression, Suicidal Ideations, Homicidal Ideation Endocrine: No: Heat Intolerance, Cold Intolerance, Polydipsia, Polyuria, Other Physical Exam Narrative GENERAL: Well-nourished, well-developed patient. SKIN: Warm and dry. HEAD: Normocephalic and atraumatic. EYES: No scleral icterus. No injection or drainage. ENT: No nasal drainage noted. Mucous membranes pink. Airway patent. NECK: Supple, trachea midline. No JVD. CARDIOVASCULAR: Regular rate and rhythm without murmurs, gallops, or rubs. RESPIRATORY: Breath sounds equal bilaterally. No accessory muscle use. BREASTS: Bilateral exam showed no masses , no retractions, no nipple discharge. ABDOMEN/GI: Abdomen soft, non-tender, bowel sounds present, no rebound, no guarding Gravid to [36-] weeks size Fundal Height: [-36] GENITOURINARY: External Genitalia: intact and normal in appearance BUS glands: [-] Cervix: [-Posterior] Dilatation: [0-] Effacement: [-0] Station: [-3] Presentation: [vtx-] Membranes: [intact ] Uterine Contractions: [-none] FHT's: Category: [1-] Baseline: [133-] Reactive: [-yes] Variability: [mod-] Decels: [0-] EXTREMITIES: No cyanosis or edema. BACK: Nontender without obvious deformity. No CVA tenderness. NEUROLOGICAL: Awake and alert. Motor and sensory grossly within normal limits. Five out of 5 muscle strength in all muscle groups. Normal speech. MDM Interpretation(s) Patient is 32-year-old black female [address] Gallagher in appearance presented here for decreased movement, heart rate tracing is reactive and the baby is active here on OB ED. No contractions noted. She describes some abdominal pain that began earlier today but are not contractions and soft tissue strain and pain. Cervix is closed high Plan Plan the patient to be at bedrest at home as much as possible increase her fluid intake for hydration, Tylenol when necessary for pain. Heating pad or hot bath perceptibly. She to follow-up with Dr. Gallagher Diagnosis Diagnosis: Primary Impression: Decreased movement affecting management of in third trimester Additional Impression: Abdominal pain during in third trimester Disposition: 01 DISCHARGE HOME Condition: Stable Emmanuel Pineda II, MD Jul 09, 2017 13:36
[2017-07-19] MEDS ORDERED: PRENTAB7 (18:18)
== END 2017-07-09 13:46 | disposition home or self-care (01) ==
LOC: HOBED 12:44
DX: O36.8130 Decreased fetal movements, third trimester, not applicable or unspecified (principal); O26.893 Other specified pregnancy related conditions, third trimester; R10.9 Unspecified abdominal pain; Z3A.37 37 weeks gestation of pregnancy
CPT/HCPCS: 59025

== ENCOUNTER 2017-07-19 17:52 | Emergency (ER) | payer MEDICAID ==
[~2017-07-19] VITALS: Ht 152.4 cm; Wt 130.6 kg
[2017-07-19] MEDS ORDERED: PRENTAB7 ×2 (18:18)
[2017-07-19] MEDS ORDERED: DEXTROSE 5%-LACTATED RING INJ 1,000 ML IV SCH (19:00)
--- NOTE | 2017-07-19 19:12 | PD ---
HPI Chief Complaint Headache, abdominal pain Travel History International Travel<30 Days: No Contact w/Intl Traveler<30Days: No Known Affected Area: No History of Present Illness HPI 32-year-old 002, IUP at 38.2 care complicated by obesity The patient presents complaining of onset of a headache at about 2 PM. She reports that she took 3 extra strength Tylenol at 2 PM and another 3 just prior to coming. She reports that she tried to go to sleep but was not able to sleep. There are no other alleviating or aggravating factors. The patient also reports that she has pelvic pressure and abdominal pressure. She reports that her abdomen balls up into a hard ball and is uncomfortable. This is been occurring all afternoon but is at irregular intervals, not even twice per hour. The patient also reports some tingling in the skin on her anterior thighs. This is only occurs when she is standing and resolves when she is at rest. The patient reports good movement. She denies any leaking of fluid or vaginal bleeding. She denies any painful contractions. She denies any visual changes, right upper quadrant, or epigastric pain History Past Medical History Narrative Medical Obesity Obstetric History Obstetric History 002 2 Past Surgical History Narrative Surgical Bartholin's cyst Family History Narrative Family History Denies Social History Alcohol Use: No Tobacco Use: No Substance Abuse: No Allergies-Medications (Allergen,Severity, Reaction): Coded Allergies: No Known Allergies (Verified Adverse Reaction, Unknown, 06/23/17) Home Meds Active Scripts Famotidine (Famotidine) 20 Mg Tab, 20 MG PO BID, #30 TAB 0 Refills Prov:Navneet Tineo MD 06/23/17 Reported Medications Potassium Chloride ER (K-Tab) 20 Meq Tab, 40 MEQ PO DAILY for Electrolyte Replacement, #2 TAB 0 Refills 07/19/17 Pnv No.95/Ferrous Fum/Folic AC ( Vitamins Tablet) 28 Mg Iron-800 Mcg Tablet 07/19/17 Review of Systems Except as stated in HPI: all other systems reviewed are Neg Physical Exam Narrative GENERAL: Well-nourished, well-developed patient. SKIN: Warm and dry. HEAD: Normocephalic and atraumatic. EYES: No scleral icterus. No injection or drainage. ENT: No nasal drainage noted. Mucous membranes pink. Airway patent. NECK: Supple, trachea midline. No JVD. CARDIOVASCULAR: Regular rate and rhythm without murmurs, gallops, or rubs. RESPIRATORY: Breath sounds equal bilaterally. No accessory muscle use. BREASTS: Deferred ABDOMEN/GI: Abdomen soft, non-tender, bowel sounds present, no rebound, no guarding Gravid GENITOURINARY: External Genitalia: intact and normal in appearance. Normal BUS glands. No cervical or vaginal masses appreciated. Grossly normal rugae. Physiologic discharge. SVE 1/thick/high/posterior FHT's: heart tones in the 150s with moderate long-term variability, good accelerations, no decelerations noted. This is category 1 heart rate tracing and reactive NST EXTREMITIES: No cyanosis or edema. BACK: Nontender without obvious deformity. NEUROLOGICAL: Awake and alert. Motor and sensory grossly within normal limits. Five out of 5 muscle strength in all muscle groups. Normal speech. Anterior thigh with normal sensation, as well as sharp/dull discrimination. Muscle strength is normal in her lower extremities. Psychiatric: Grossly normal memory and affect Musculoskeletal: Grossly normal range of motion, gait, muscle strength Data Data Orders Orders Vital Signs (Adult) .ON ADMISSION (07/19/17 18:44) ^ Labor Status (07/19/17 18:44) ^ Non Stress Test (07/19/17 18:44) Urinalysis - C+S If Indicated (07/19/17 18:44) Cbc No Diff, Includes Plts (07/19/17 18:44) Comprehensive Metabolic Panel (07/19/17 18:44) Dextrose 5%-Lactated Ring Inj (D5-Lr Inj (07/19/17 19:00) Uric Acid (07/19/17 19:08) Magnesium (Mg) (07/19/17 19:09) MDM Plan Assessment/plan: 1. IUP at 38.2 2. Abdominal/pelvic pressure: No evidence of labor, labor precautions 3. Headache: Although the patient has normal blood pressure, labs were checked to further assess this headache. In addition to check her LFTs due to taking more than the recommended dose of Tylenol. We discussed the recommended dose of 650 mg every 4 hours, up to 1000 mg every 4-6 hours with newer guidelines suggesting a maximum 3000 mg per day. No evidence of preeclampsia with normal PC ratio, normal platelets, normal LFTs, and normal blood pressure. Strict preeclampsia precautions. The patient's headache has improved significantly with IV fluids. 4. Tingling: Patient had a normal neurological examination. We discussed transfer to the ED for further evaluation and the patient declines. Discussed that this is likely related to the uterus compressing nerves that provide sensation to the lower extremities. Discussed comfort measures and use of caution when changing positions or ambulating. 5. well-being: Reassuring testing with reactive NST and category 1 heart rate tracing. kick counts daily. 6. Mild hypokalemia: KCl 40 mEq were given by mouth with an additional dose for Rx for tomorrow. Encouraged healthy diet and other sources of potassium. 7. Follow up with primary OB in 2-3 days or sooner if needed; patient has appointment on 07/21/17 Diagnosis Diagnosis: Primary Impression: 38 weeks gestation of Additional Impressions: False labor at or after 37 completed weeks of gestation, antepartum Headache Disposition: 01 DISCHARGE HOME Talisha Bowers MD Jul 19, 2017 19:12
[2017-07-19 19:38] LABS: HEMATOCRIT 34.8 % (35.0-46.0); HEMOGLOBIN 11.4 GM/DL (11.6-15.3); MEAN CELL VOLUME 89.1 FL (80.0-100.0); MEAN CORPUSCULAR HEMOGLOBIN 29.2 PG (27.0-34.0); MEAN CORPUSCULAR HGB CONC 32.8 % (32.0-36.0); MEAN PLATELET VOLUME 8.3 FL (7.0-11.0); PLATELET COUNT 323 TH/MM3 (150-450); RED BLOOD COUNT 3.91 MIL/MM3 (4.00-5.30); RED CELL DISTRIBUTION WIDTH 14.2 % (11.6-17.2); WHITE BLOOD COUNT 12.4 TH/MM3 (4.0-11.0)
[2017-07-19 19:58] LABS: ALBUMIN 2.8 GM/DL (3.4-5.0); ALT (GPT) 13 U/L (10-53); AST (GOT) 14 U/L (15-37); BICARBONATE 24.4 MEQ/L (21.0-32.0); BLOOD UREA NITROGEN 7 MG/DL (7-18); CALCIUM 8.8 MG/DL (8.5-10.1); CHLORIDE 106 MEQ/L (98-107); CREATININE 0.66 MG/DL (0.50-1.00); GLOMERULAR FILTRATION RATE 125 ML/MIN (>89); GLUCOSE,RANDOM 76 MG/DL (74-106); SODIUM (NA) 139 MEQ/L (136-145)
[2017-07-19 20:06] LABS: BILIRUBIN, URINE NEG (NEG); BLOOD, URINE NEG (NEG); CALCIUM OXALATE CRYSTALS,URINE MANY /hpf; GLUCOSE,URINE NEG (NEG); KETONE, URINE NEG (NEG); MUCUS URINE FEW /lpf (OCC); NITRITE,URINE NEG (NEG); SQUAMOUS EPITHELIAL CELL URINE 2 /hpf (0-5); URINE COLOR YELLOW (YELLW/STRAW); URINE LEUKOCYTE ESTERASE SMALL (NEG)
[2017-07-19 20:12] LABS: ALKALINE PHOSPHATASE 117 U/L (45-117); TOTAL BILIRUBIN ADULT 0.2 MG/DL (0.2-1.0); TOTAL PROTEIN 7.5 GM/DL (6.4-8.2)
[2017-07-19] MEDS ORDERED: POTASSIUM CHLORIDE 20 MEQ CONTROLLED RELEASE TAB PO ONE (20:30)
[2017-07-19] MEDS ORDERED: POTA1TAB4 PO (20:42)
== END 2017-07-19 20:57 | disposition home or self-care (01) ==
LOC: HOBED 17:52
DX: O47.1 False labor at or after 37 completed weeks of gestation (principal); R51 Headache; O99.283 Endocrine, nutritional and metabolic diseases complicating pregnancy, third trimester; E87.6 Hypokalemia; Z3A.38 38 weeks gestation of pregnancy
CPT/HCPCS: 59025; 80053; 81001; 82570; 83735; 84156; 84550; 85027; 96360; 99284; J7121

== ENCOUNTER 2017-07-22 16:24 | Emergency (ER) | payer MEDICAID ==
[~2017-07-22 16:24] MED LIST changes: +POTA1TAB4 PO; +PRENTAB7
--- NOTE | 2017-07-22 17:50 | PD ---
HPI Chief Complaint 38 weeks and 5 days Reduced movements 1 day Abdominal cramping 1 day Date Seen: Jul 22, 2017 Time Seen: 17:30 Travel History International Travel<30 Days: No Contact w/Intl Traveler<30Days: No Known Affected Area: No History of Present Illness HPI Pt is a 32 yo at 38 weeks and 5 days. EDC 07-31-[address] Gallagher. care previously uncomplicated but patient is obese. Pt presents with reduced movements today. She reports abdominal cramping since 06/19/2017. She was seen on OB ED same day , and told she had 'low potassium' and sent home with script for potassium supplements, which she has been taking. She denies any vaginal bleeding or leaking. Weeks Gestation: 38 Para: 2 : 3 History Past Medical History Narrative Medical Obesity Obstetric History Obstetric History 2 term vaginal deliveries Past Surgical History Narrative Surgical Marsupialization of Bartholin's Cyst Surgical History: No Previous Surgery Family History Family History: Negative Social History Alcohol Use: No Tobacco Use: No Substance Abuse: No Allergies-Medications (Allergen,Severity, Reaction): Coded Allergies: No Known Allergies (Verified Adverse Reaction, Unknown, 06/23/17) Home Meds Active Scripts Famotidine (Famotidine) 20 Mg Tab, 20 MG PO BID, #30 TAB 0 Refills Prov:Navneet Tineo MD 06/23/17 Reported Medications Potassium Chloride ER (K-Tab) 20 Meq Tab, 40 MEQ PO DAILY for Electrolyte Replacement, #2 TAB 0 Refills 07/19/17 Pnv No.95/Ferrous Fum/Folic AC ( Vitamins Tablet) 28 Mg Iron-800 Mcg Tablet 07/19/17 Review of Systems Except as stated in HPI: all other systems reviewed are Neg Physical Exam Narrative GENERAL: Well-nourished, well-developed patient. SKIN: Warm and dry. HEAD: Normocephalic and atraumatic. EYES: No scleral icterus. No injection or drainage. ENT: No nasal drainage noted. Mucous membranes pink. Airway patent. NECK: Supple, trachea midline. No JVD. CARDIOVASCULAR: Regular rate and rhythm without murmurs, gallops, or rubs. RESPIRATORY: Breath sounds equal bilaterally. No accessory muscle use. BREASTS: Bilateral exam showed no masses , no retractions, no nipple discharge. ABDOMEN/GI: Abdomen soft, non-tender, bowel sounds present, no rebound, no guarding Gravid to [38] weeks size Fundal Height: [38cm] GENITOURINARY: External Genitalia: intact and normal in appearance BUS glands: [wnl] Cervix: [soft] Dilatation: [closed] Effacement: [50%] Station: [-3] Presentation: [vertex] Membranes: [intact] Uterine Contractions: [rare] FHT's: Category: [1] Baseline: [130s] Reactive: [-] Variability: [moderate] Decels: [none] EXTREMITIES: No cyanosis or edema. BACK: Nontender without obvious deformity. No CVA tenderness. NEUROLOGICAL: Awake and alert. Motor and sensory grossly within normal limits. Five out of 5 muscle strength in all muscle groups. Normal speech. Data Data Vital Signs Reviewed: Yes MDM Medical Record Reviewed: Yes Plan Pt at 38 weeks and 5 days. Reduced movements, but now feeling since admission. NST Cat 1. Will send UA UA wnl Diagnosis Diagnosis: Primary Impression: with 38 completed weeks gestation Additional Impressions: Decreased movement Abdominal cramping affecting Disposition: 01 DISCHARGE HOME Condition: Good Franklin Moralez MD Jul 22, 2017 17:50
[2017-07-22 18:12] LABS: BACTERIA, URINE OCC /hpf; BILIRUBIN, URINE NEG (NEG); BLOOD, URINE NEG (NEG); GLUCOSE,URINE NEG (NEG); KETONE, URINE NEG (NEG); NITRITE,URINE NEG (NEG); PH, URINE 6.5 (5.0-8.5); SQUAMOUS EPITHELIAL CELL URINE 4 /hpf (0-5); URINE COLOR YELLOW (YELLW/STRAW); URINE LEUKOCYTE ESTERASE MOD (NEG)
== END 2017-07-22 18:43 | disposition home or self-care (01) ==
LOC: HOBED 16:24
DX: O26.893 Other specified pregnancy related conditions, third trimester (principal); R10.9 Unspecified abdominal pain; O36.8130 Decreased fetal movements, third trimester, not applicable or unspecified; O99.213 Obesity complicating pregnancy, third trimester; E66.9 Obesity, unspecified; Z3A.38 38 weeks gestation of pregnancy
CPT/HCPCS: 81001; 99283

== ENCOUNTER 2017-07-25 19:20 | Emergency (ER) | payer MEDICAID ==
--- NOTE | 2017-07-25 20:41 | PD ---
HPI Chief Complaint 39 weeks and 1 day Abdominal cramping 5 weeks Date Seen: Jul 25, 2017 Time Seen: 20:30 Travel History International Travel<30 Days: No Contact w/Intl Traveler<30Days: No Known Affected Area: No History of Present Illness HPI Pt is a 32 yo at 39 weeks and 1 day. Presents to ED with c/o continuing abdominal cramping. Pt has had symptoms since 06/19/2017. She was seen on ED 2 days ago and discharged home. She denies any vaginal bleeding or leaking. Active movements. Denies any urinary symptoms.\ No GI symptoms. Weeks Gestation: 39 Para: 2 : 3 History Past Medical History Narrative Medical Obesity Obstetric History Obstetric History x 2, term Past Surgical History Narrative Surgical Bartholin's cyst marsupialization Surgical History: No Previous Surgery Social History Alcohol Use: No Tobacco Use: No Substance Abuse: No Allergies-Medications (Allergen,Severity, Reaction): Coded Allergies: No Known Allergies (Verified Adverse Reaction, Unknown, 06/23/17) Home Meds Active Scripts Famotidine (Famotidine) 20 Mg Tab, 20 MG PO BID, #30 TAB 0 Refills Prov:Navneet Tineo MD 06/23/17 Reported Medications Potassium Chloride ER (K-Tab) 20 Meq Tab, 40 MEQ PO DAILY for Electrolyte Replacement, #2 TAB 0 Refills 07/19/17 Pnv No.95/Ferrous Fum/Folic AC ( Vitamins Tablet) 28 Mg Iron-800 Mcg Tablet 07/19/17 Review of Systems Except as stated in HPI: all other systems reviewed are Neg Physical Exam Narrative GENERAL: Well-nourished, well-developed patient. SKIN: Warm and dry. HEAD: Normocephalic and atraumatic. EYES: No scleral icterus. No injection or drainage. ENT: No nasal drainage noted. Mucous membranes pink. Airway patent. NECK: Supple, trachea midline. No JVD. CARDIOVASCULAR: Regular rate and rhythm without murmurs, gallops, or rubs. RESPIRATORY: Breath sounds equal bilaterally. No accessory muscle use. BREASTS: Bilateral exam showed no masses , no retractions, no nipple discharge. ABDOMEN/GI: Abdomen soft, non-tender, bowel sounds present, no rebound, no guarding Gravid to [39] weeks size Fundal Height: [40cm] GENITOURINARY: External Genitalia: intact and normal in appearance BUS glands: [wnl] Cervix: [soft] Dilatation: [closed] Effacement: [thick, long] Station: [-3] Presentation: [vertex] Membranes: [intact] Uterine Contractions: [none] FHT's: Category: [1] Baseline: [130s] Reactive: [-] Variability: [moderate] Decels: [none] EXTREMITIES: No cyanosis or edema. BACK: Nontender without obvious deformity. No CVA tenderness. NEUROLOGICAL: Awake and alert. Motor and sensory grossly within normal limits. Five out of 5 muscle strength in all muscle groups. Normal speech. Data Data Vital Signs Reviewed: Yes MDM Diagnosis Diagnosis: Primary Impression: with 39 completed weeks gestation Additional Impression: Abdominal pain during , antepartum Disposition: 01 DISCHARGE HOME Condition: Good Patient Instructions: General Instructions, Having Your Baby: The Labor Process (GEN) Additional Instructions: RETURN FOR CONTRACTIONS, LOSS OF FLUID (WATER BREAKING), VAGINAL BLEEDING, OR DECREASED MOVEMENT DRINK 8-10 LARGE GLASSES OF WATER EVERY DAY KEEP SCHEDULED APPOINTMENT WITH YOUR PROVIDER Departure Forms: Tests/Procedures Franklin Moralez MD Jul 25, 2017 20:41
== END 2017-07-25 20:35 | disposition home or self-care (01) ==
LOC: HOBED 19:20
DX: O26.893 Other specified pregnancy related conditions, third trimester (principal); R10.9 Unspecified abdominal pain; O99.213 Obesity complicating pregnancy, third trimester; Z3A.39 39 weeks gestation of pregnancy
CPT/HCPCS: 59025

== ENCOUNTER 2017-07-30 12:49 | Inpatient (IN) | payer MEDICAID ==
[2017-07-30] VITALS (41 sets, daily range): BP systolic 81–129; BP diastolic 40–84; PULSE 66–132; RESP 18; TEMP 97.5–98.4
[~2017-07-30] VITALS: Ht 152.4 cm; Wt 105.0 kg
[2017-07-30] MEDS ORDERED: LACTATED RINGER'S 1000 ML INJ 1,000 ML IV PRN (13:27)
[2017-07-30] MEDS ORDERED: SODIUM CHLORID 0.9% 500 ML INJ 500 ML IV PRN (13:30)
[2017-07-30] MEDS ORDERED: LIDOCAINE HCL 1% 50 ML VIAL INFIL PRN (13:30)
[2017-07-30] MEDS ORDERED: OXYTOCIN 30 UNITS-500ML PREMIX 500 ML IV SCH ×2 (13:30→18:00)
[2017-07-30] MEDS ORDERED: CITRIC ACID-SODIUM CITRATE LIQ 30 ML UDC PO SCH (13:30)
[2017-07-30] MEDS ORDERED: MINERAL OIL 10 ML VIAL TOPICAL PRN (13:30)
[2017-07-30] MEDS ORDERED: LIDOCAINE HCL 1% 50 ML VIAL I-DERMAL PRN (13:30)
[2017-07-30] MEDS ORDERED: OXYTOCIN 30 UNITS-500ML PREMIX 500 ML IV ONE ×2 (13:30→18:00)
[2017-07-30] MEDS ORDERED: ePHEDrine/NS 25 MG/5 ML SYRINGE ONE (13:37)
[2017-07-30] MEDS ORDERED: fentaNYL 2MCG-BUPIV 0.125% INJ 100 ML ONE (13:37)
[2017-07-30] MEDS ORDERED: SODIUM CHLOR 0.9% 1000 ML INJ 1,000 ML IV PRN (13:47)
[2017-07-30] MEDS: LACTATED RINGER'S 1000 ML INJ 1,000 ML IV SCH ×2 (13:57→15:35)
[2017-07-30] MEDS ORDERED: PENICILLIN G POTASSIUM INJ 5,000,000 UNITS in SODIUM CHLORIDE 0.9% INJ 100 ML IV ONE (14:00)
[2017-07-30 14:01] LABS: AUTOMATED NEUTROPHIL # 8.7 TH/MM3 (1.8-7.7); BASOPHIL % 0.2 % (0.0-2.0); EOSINOPHIL # 0.1 TH/MM3 (0-0.4); EOSINOPHIL % 0.4 % (0.0-4.0); HEMATOCRIT 35.1 % (35.0-46.0); HEMOGLOBIN 11.9 GM/DL (11.6-15.3); LYMPH % 24.4 % (9.0-44.0); LYMPHOCYTE # 3.1 TH/MM3 (1.0-4.8); MEAN CELL VOLUME 89.2 FL (80.0-100.0); MEAN CORPUSCULAR HEMOGLOBIN 30.3 PG (27.0-34.0); MEAN PLATELET VOLUME 8.5 FL (7.0-11.0); MONO % 6.6 % (0.0-8.0); MONOCYTE # 0.8 TH/MM3 (0-0.9); NEUT % 68.4 % (16.0-70.0); PLATELET COUNT 356 TH/MM3 (150-450); RED BLOOD COUNT 3.94 MIL/MM3 (4.00-5.30); RED CELL DISTRIBUTION WIDTH 14.4 % (11.6-17.2); WHITE BLOOD COUNT 12.7 TH/MM3 (4.0-11.0)
[2017-07-30 14:11] LABS: AMORPHOUS SEDIMENT, URINE RARE; BACTERIA, URINE FEW /hpf; BILIRUBIN, URINE NEG (NEG); BLOOD, URINE TRACE (NEG); GLUCOSE,URINE NEG (NEG); KETONE, URINE NEG (NEG); MUCUS URINE FEW /lpf (OCC); NITRITE,URINE NEG (NEG); PH, URINE 6.5 (5.0-8.5); SQUAMOUS EPITHELIAL CELL URINE 4 /hpf (0-5); URINE COLOR YELLOW (YELLW/STRAW); URINE LEUKOCYTE ESTERASE SMALL (NEG)
[2017-07-30] MEDS ORDERED: DIPHTH/TETANUS/ACEL PERTUSSIS (BOOSTER) 0.5 ML VIAL/PFS IM ONE (16:00)
[2017-07-30] MEDS ORDERED: MEASLES, MUMPS, RUBELLA VACCINE 0.5 ML VIAL SQ ONE (16:00)
[2017-07-30] MEDS ORDERED: BENZOCAINE 20% TOPICAL SPRAY 60 ML CAN TOPICAL PRN (18:00)
[2017-07-30] MEDS ORDERED: WITCH HAZEL 50%/GLYCERIN 12.5% 40 PAD JAR TOPICAL PRN (18:00)
[2017-07-30] MEDS ORDERED: ALUMINUM/MAGNESIUM/SIMETH 30 ML CUP PO PRN (18:00)
[2017-07-30] MEDS: PENICILLIN G POTASSIUM INJ 2,500,000 UNITS in SODIUM CHLORIDE 0.9% INJ 100 ML IV SCH ×2 (18:00→22:00)
[2017-07-30] MEDS ORDERED: SODIUM CHLORIDE 0.9% FLUSH 10 ML FLUSH IV FLUSH PRN (18:00)
[2017-07-30] MEDS ORDERED: DOCUSATE SODIUM 50 MG/SENNA 8.6 MG TAB PO PRN (18:00)
[2017-07-30] MEDS ORDERED: ONDANSETRON ODT 4 MG TAB PO PRN (18:00)
[2017-07-30] MEDS ORDERED: fentaNYL 2MCG-BUPIV 0.125% 100 ML EPIDURAL SCH (18:15)
[2017-07-30] MEDS ORDERED: DO NOT ADMINISTER ANTICOAGULANTS PRN (18:15)
[2017-07-30] MEDS ORDERED: ePHEDrine/NS 25 MG/5 ML SYRINGE IV PUSH PRN (18:15)
[2017-07-30] MEDS ORDERED: NO SYSTEM NARCOTICS PRN (18:15)
--- NOTE | 2017-07-30 19:44 | HHI.HP ---
HPI Chief Complaint Intrauterine at 39 weeks 1 day. Having tremendous pain and pressure for the last several weeks. Had her cervix checked in the office and she was 4 cm and wanted to be induced Date Seen: Jul 30, 2017 Time Seen: 13:30 Travel History International Travel<30 Days: No Contact w/Intl Traveler<30Days: No Known Affected Area: No History of Present Illness HPI This is a 32-year-old patient who has been miserable for the last 3 weeks with pelvic pressure and pelvic pain. She is now over 39 weeks her cervix is 4 cm and she is requesting induction which I think is reasonable Weeks Gestation: 39 Para: 2 : 3 Miscarriage: 0 History Past Medical History Medical History: Denies Significant Hx Obstetric History Obstetric History Positive GBS, para 2002. 2 History of Trichomonas test of cure was negative Past Surgical History Narrative Surgical Denies Surgical History: No Previous Surgery Family History Family History: Negative Social History Alcohol Use: No Tobacco Use: No Substance Abuse: No Allergies-Medications (Allergen,Severity, Reaction): Coded Allergies: No Known Allergies (Verified Adverse Reaction, Unknown, 06/23/17) Home Meds Active Scripts Famotidine (Famotidine) 20 Mg Tab, 20 MG PO BID, #30 TAB 0 Refills Prov:Navneet Tineo MD 06/23/17 Reported Medications Pnv No.95/Ferrous Fum/Folic AC ( Vitamins Tablet) 28 Mg Iron-800 Mcg Tablet 07/19/17 Discontinued Reported Medications Potassium Chloride ER (K-Tab) 20 Meq Tab, 40 MEQ PO DAILY for Electrolyte Replacement, #2 TAB 0 Refills 07/19/17 Review of Systems Except as stated in HPI: all other systems reviewed are Neg Physical Exam Vital Signs Date Time Temp Pulse Resp B/P (MAP) Pulse Ox O2 Delivery O2 Flow Rate FiO2 07/30/17 19:01 94 105/69 (81) 07/30/17 18:45 85 101/68 (79) 07/30/17 18:35 18 07/30/17 18:30 86 107/62 (77) 07/30/17 18:15 92 18 103/77 (86) 07/30/17 18:01 97 92/71 (78) 07/30/17 17:57 97.8 07/30/17 17:57 18 07/30/17 17:46 100 103/50 (67) 07/30/17 17:45 104 111/54 (73) 07/30/17 17:44 18 07/30/17 17:32 111 110/47 (68) 07/30/17 17:15 18 07/30/17 17:01 132 117/84 (95) 07/30/17 16:29 111 18 118/70 (86) 07/30/17 16:03 99 115/45 (68) 07/30/17 15:46 91 100/58 (72) 07/30/17 15:37 91 129/58 (81) 07/30/17 15:31 86 81/53 (62) 07/30/17 15:30 97.5 07/30/17 15:26 18 07/30/17 15:25 88 104/51 (68) 07/30/17 15:21 91 100/45 (63) 07/30/17 15:20 98 112/57 (75) 07/30/17 15:16 86 99/57 (71) 07/30/17 15:10 90 118/67 (84) 07/30/17 15:06 82 97/45 (62) 07/30/17 15:00 89 07/30/17 15:00 90 102/49 (66) 07/30/17 14:55 90 103/48 (66) 07/30/17 14:55 89 07/30/17 14:50 90 07/30/17 14:50 87 101/52 (68) 07/30/17 14:45 81 07/30/17 14:45 76 116/68 (84) 07/30/17 14:44 75 116/78 (91) 07/30/17 14:40 77 07/30/17 14:39 78 102/40 (60) 07/30/17 14:35 68 07/30/17 14:30 66 07/30/17 14:17 72 114/69 (84) 07/30/17 14:16 18 Narrative GENERAL: Well-nourished, well-developed patient. SKIN: Warm and dry. HEAD: Normocephalic and atraumatic. EYES: No scleral icterus. No injection or drainage. ENT: No nasal drainage noted. Mucous membranes pink. Airway patent. NECK: Supple, trachea midline. No JVD. CARDIOVASCULAR: Regular rate and rhythm without murmurs, gallops, or rubs. RESPIRATORY: Breath sounds equal bilaterally. No accessory muscle use. BREASTS: Bilateral exam showed no masses , no retractions, no nipple discharge. ABDOMEN/GI: Abdomen soft, non-tender, bowel sounds present, no rebound, no guarding Gravid to [39] weeks size Fundal Height: [39] GENITOURINARY: External Genitalia: intact and normal in appearance BUS glands: [-] Cervix: [] Dilatation 4 cm Effacement: [80%-] Station: [-2-] Presentation: [-] Membranes: [intact] Uterine Contractions: [-] FHT's: Category: [1] Baseline: [-] Reactive: [-] Variability: [-] Decels: [-] EXTREMITIES: No cyanosis or edema. BACK: Nontender without obvious deformity. No CVA tenderness. NEUROLOGICAL: Awake and alert. Motor and sensory grossly within normal limits. Five out of 5 muscle strength in all muscle groups. Normal speech. Caprini VTE Risk Assessment Caprini VTE Risk Assessment: No/Low Risk (score <= 1) VTE Pharm Contraindication: Epidural catheter Caprini Risk Assessment Model Point Value = 1 Point Value = 2 Point Value = 3 Point Value = 5 Age 41-60 Minor surgery BMI > 25 kg/m2 Swollen legs Varicose veins or History of unexplained or recurrent spontaneous Oral contraceptives or hormone replacement Sepsis (< 1 month) Serious lung disease, including pneumonia (< 1 month) Abnormal pulmonary function Acute myocardial infarction Congestive heart failure (< 1 month) History of inflammatory bowel disease Medical patient at bed rest Age 61-74 Arthroscopic surgery Major open surgery (> 45 min) Laparoscopic surgery (> 45 min) Malignancy Confined to bed (> 72 hours) Immobilizing plaster cast Central venous access Age >= 75 History of VTE Family history of VTE Factor V Leiden Prothrombin [id number] Lupus anticoagulant Anticardiolipin antibodies Elevated serum homocysteine Heparin-induced thrombocytopenia Other congenital or acquired thrombophilia Stroke (< 1 month) Elective arthroplasty Hip, pelvis, or leg fracture Acute spinal cord injury (< 1 month) Prophylaxis Regimen Total Risk Factor Score Risk Level Prophylaxis Regimen 0-1 Low Early ambulation 2 Moderate Order ONE of the following: *Sequential Compression Device (SCD) *Heparin 5000 units SQ BID 3-4 Higher Order ONE of the following medications: *Heparin 5000 units SQ TID *Enoxaparin/Lovenox 40 mg SQ daily (WT < 150 kg, CrCl > 30 mL/min) *Enoxaparin/Lovenox 30 mg SQ daily (WT < 150 kg, CrCl > 10-29 mL/min) *Enoxaparin/Lovenox 30 mg SQ BID (WT < 150 kg, CrCl > 30 mL/min) AND/OR *Sequential Compression Device (SCD) 5 or more Highest Order ONE of the following medications: *Heparin 5000 units SQ TID (Preferred with Epidurals) *Enoxaparin/Lovenox 40 mg SQ daily (WT < 150 kg, CrCl > 30 mL/min) *Enoxaparin/Lovenox 30 mg SQ daily (WT < 150 kg, CrCl > 10-29 mL/min) *Enoxaparin/Lovenox 30 mg SQ BID (WT < 150 kg, CrCl > 30 mL/min) AND *Sequential Compression Device (SCD) Data Data Orders Orders Admit To Inpatient (07/30/17 ) Code Status (07/30/17 13:27) Vital Signs (Adult) .Per protocol (07/30/17 13:27) Activity Oob Ad Luci (07/30/17 13:27) Heart (07/30/17 13:27) Amnioinfusion (07/30/17 13:27) Urinary Catheter Management .ONCE (07/30/17 13:27) Diet Liquid (07/30/17 Lunch) Lactated Ringer's 1000 Ml Inj (Lr 1000 M (07/30/17 13:27) Lactated Ringer's 1000 Ml Inj (Lr 1000 M (07/30/17 13:27) Sodium Chlorid 0.9% 500 Ml Inj (Ns 500 M (07/30/17 13:30) Sodium Chlor 0.9% 1000 Ml Inj (Ns 1000 M (07/30/17 13:47) Lidocaine 1% Inj (50 Ml) (Xylocaine 1% I (07/30/17 13:30) Citric Acid-Sodium Citrate Liq (Bicitra (07/30/17 13:30) Fentanyl Inj (Fentanyl Inj) (07/30/17 13:30) Fentanyl Inj (Fentanyl Inj) (07/30/17 13:30) Complete Blood Count With Diff (07/30/17 13:27) Hold Clot (07/30/17 13:27) Abo/Rh Blood Type (07/30/17 13:27) Urinalysis - C+S If Indicated (07/30/17 13:27) Drug Screen, Random Urine (07/30/17 13:27) Resp Oxygen Non Rebreathe Mask (07/30/17 ) ^ Epidural / Intrathecal Infus (07/30/17 13:27) Oxytocin 30 Units-500ml Premix (Pitocin (07/30/17 13:30) Lidocaine 1% Inj (50 Ml) (Xylocaine 1% I (07/30/17 13:30) Light Mineral Oil (Muri-Lube Oil) (07/30/17 13:30) ^ Non Stress Test (07/30/17 13:27) Response To Medication .Post New Med Administration, Reaction (07/30/17 13:27) ^ Discontinue Medication (07/30/17 13:27) Oxytocin 30 Units-500ml Premix (Pitocin (07/30/17 13:30) Inpatient Certification (07/30/17 ) Specimen To Be Collected PRN (07/30/17 13:27) Specimen To Be Collected PRN (07/30/17 13:27) Penicillin G Potassium Inj (Pfizerpen-G (07/30/17 14:00) Penicillin G Potassium Inj (Pfizerpen-G (07/30/17 18:00) Fentanyl 2mcg-Bupiv 0.125% Inj (Fentanyl (07/30/17 13:37) Ephedrine/Ns 25 Mg/5 Ml Syr (Ephedrine/N (07/30/17 13:37) ^ Place On Chart (07/30/17 ) ^ Medication Indications (07/30/17 ) Consent (07/30/17 ) ^ No Systemic Narcotics (07/30/17 ) ^ Call Anesthesiologist (07/30/17 ) ^ Discontinue Epidural Cathete (07/30/17 ) Anticoagulant Alert (07/30/17 ) ^ Epidural Alert (07/30/17 ) Oxytocin 30 Units-500ml Premix (Pitocin (07/30/17 18:00) Vital Signs (Adult) .QSHIFT (07/30/17 17:47) Activity Oob Ad Luci (07/30/17 17:47) Ice / Cold Pack PRN (07/30/17 17:47) Discontinue Iv (07/30/17 17:47) Sitz Bath PRN (07/30/17 17:47) ^ Massage (07/30/17 17:47) ^ Rhogam (07/30/17 17:47) Urinary Catheter Management .PRN (07/30/17 17:47) Diet Regular Basic (07/30/17 Dinner) Sodium Chloride 0.9% Flush (Ns Flush) (07/30/17 21:00) Sodium Chloride 0.9% Flush (Ns Flush) (07/30/17 18:00) Oxytocin 30 Units-500ml Premix (Pitocin (07/30/17 18:00) Acetaminophen (Tylenol) (07/30/17 18:00) Ibuprofen (Motrin) (07/30/17 18:00) Benzocaine 20% Top Spr (Americaine 20% T (07/30/17 18:00) Witch Tatyana-Glycerin Pad (Tucks Pads) (07/30/17 18:00) Docusate Sodium-Senna (Albertina-Colace) (07/30/17 18:00) Fbnprjx-Hrfjd-Asbmwql Inj (M-M-R Ii Inj) (07/30/17 16:00) Txwt-Hoe-Cqgvuv (Booster) Inj (Boostrix (07/30/17 16:00) Al-Mag Hy-Si 40-40-4 Mg/Ml Liq (Mag-Al P (07/30/17 18:00) Ondansetron Odt (Zofran Odt) (07/30/17 18:00) Misc Nursing Information (07/30/17 18:15) Misc Nursing Information (07/30/17 18:15) Fentanyl Inj (Fentanyl Inj) (07/30/17 18:15) Fentanyl 2mcg-Bupiv 0.125% Inj (Fentanyl (07/30/17 18:15) Ephedrine/Ns 25 Mg/5 Ml Syr (Ephedrine/N (07/30/17 18:15) Labs Laboratory Tests Test 07/30/17 13:30 White Blood Count 12.7 Red Blood Count 3.94 Hemoglobin 11.9 Hematocrit 35.1 Mean Corpuscular Volume 89.2 Mean Corpuscular Hemoglobin 30.3 Mean Corpuscular Hemoglobin Concent 34.0 Red Cell Distribution Width 14.4 Platelet Count 356 Mean Platelet Volume 8.5 Neutrophils (%) (Auto) 68.4 Lymphocytes (%) (Auto) 24.4 Monocytes (%) (Auto) 6.6 Eosinophils (%) (Auto) 0.4 Basophils (%) (Auto) 0.2 Neutrophils # (Auto) 8.7 Lymphocytes # (Auto) 3.1 Monocytes # (Auto) 0.8 Eosinophils # (Auto) 0.1 Basophils # (Auto) 0.0 CBC Comment DIFF FINAL Differential Comment Urine Color YELLOW Urine Turbidity HAZY Urine pH 6.5 Urine Specific [place] 1.026 Urine Protein 30 Urine Glucose (UA) NEG Urine Ketones NEG Urine Occult Blood TRACE Urine Nitrite NEG Urine Bilirubin NEG Urine Urobilinogen LESS THAN 2.0 Urine Leukocyte Esterase SMALL Urine RBC 1 Urine WBC 3 Urine Squamous Epithelial Cells 4 Urine Amorphous Sediment RARE Urine Bacteria FEW Urine Mucus FEW Microscopic Urinalysis Comment CULT NOT INDICATED Urine Opiates Screen NEG Urine Barbiturates Screen NEG Urine Amphetamines Screen NEG Urine Benzodiazepines Screen NEG Urine Cocaine Screen NEG Urine Cannabinoids Screen NEG Assessment/Plan Assessment and Plan 1. Intrauterine at 39+ weeks 2. GBS positive we'll go ahead and treat her with penicillin 3. Visible cervix and patient has been miserable for several weeks will go ahead and induce her I expect her to have a easy normal vaginal delivery her last delivery was in just a couple hours I expect this will be similar 4. Chronic cough, she has had this cough for several months hopefully this will improve and we'll follow this in the hospital Luis Felipe Gallagher MD Jul 30, 2017 19:44
--- NOTE | 2017-07-30 19:47 | PD.OB.DELI ---
Weeks gestation: 39 Gest age assessed date: Jul 30, 2017 Pt started active labor?: Yes Medical induction of labor?: Yes Artificial rupture of membrane: Yes Artificial ROM date: Jul 30, 2017 Artifical ROM time: 13:30 Anesthesia: Epidural Episiotomy: None Vaginal Delivery: Normal Nuchal Cord: x2 Delayed cord clamping (45 sec): Yes : Female Delivery date: Jul 30, 2017 Delivery time: 17:33 One Minute : 8 Five Minute : 9 Weight: 6/1 Placenta: Spontaneous delivery, Intact, 3 vessel cord Laceration: No lacerations Estimated blood loss: 300CC Additional Information Nice delivery of William. Double nuchal cord that was reduced on the perineum. No OB lacerations. Many family members present for delivery Luis Felipe Gallagher MD Jul 30, 2017 19:47
[2017-07-30] MEDS: IBUPROFEN 800 MG TAB PO PRN (20:45)
[2017-07-30] MEDS: ACETAMINOPHEN 325 MG TAB PO PRN (20:45)
[2017-07-30] MEDS ORDERED: SODIUM CHLORIDE 0.9% FLUSH 10 ML FLUSH IV FLUSH SCH (21:00)
[2017-07-30] MEDS ORDERED: diphenhydrAMINE HCL 50 MG CAP PO PRN (21:30)
[2017-07-31] MEDS: ACETAMINOPHEN 325 MG TAB PO PRN ×2 (02:54→11:41)
[2017-07-31] MEDS: IBUPROFEN 800 MG TAB PO PRN ×2 (06:38→20:55)
[2017-07-31 08:00] VITALS: BP 106/63; PULSE 78; RESP 18; TEMP 98.4; O2SAT 98
--- NOTE | 2017-07-31 10:17 | HHI.OB ---
Subjective Post Day: 1 Objective Vitals/I&O Vital Signs Date Time Temp Pulse Resp B/P (MAP) Pulse Ox O2 Delivery O2 Flow Rate FiO2 07/31/17 08:00 98.4 18 106/63 (77) 98 07/31/17 08:00 78 07/30/17 20:30 98.4 86 18 101/68 (79) 07/30/17 19:58 18 07/30/17 19:30 87 113/56 (75) 07/30/17 19:16 99 111/70 (84) 07/30/17 19:01 94 105/69 (81) 07/30/17 18:45 85 101/68 (79) 07/30/17 18:35 18 07/30/17 18:30 86 107/62 (77) 07/30/17 18:15 92 18 103/77 (86) 07/30/17 18:01 97 92/71 (78) 07/30/17 17:57 97.8 07/30/17 17:57 18 07/30/17 17:46 100 103/50 (67) 07/30/17 17:45 104 111/54 (73) 07/30/17 17:44 18 07/30/17 17:32 111 110/47 (68) 07/30/17 17:15 18 07/30/17 17:01 132 117/84 (95) 07/30/17 16:29 111 18 118/70 (86) 07/30/17 16:03 99 115/45 (68) 07/30/17 15:46 91 100/58 (72) 07/30/17 15:37 91 129/58 (81) 07/30/17 15:31 86 81/53 (62) 07/30/17 15:30 97.5 07/30/17 15:26 18 07/30/17 15:25 88 104/51 (68) 07/30/17 15:21 91 100/45 (63) 07/30/17 15:20 98 112/57 (75) 07/30/17 15:16 86 99/57 (71) 07/30/17 15:10 90 118/67 (84) 07/30/17 15:06 82 97/45 (62) 07/30/17 15:00 89 07/30/17 15:00 90 102/49 (66) 07/30/17 14:55 90 103/48 (66) 07/30/17 14:55 89 07/30/17 14:50 90 07/30/17 14:50 87 101/52 (68) 07/30/17 14:45 81 07/30/17 14:45 76 116/68 (84) 07/30/17 14:44 75 116/78 (91) 07/30/17 14:40 77 07/30/17 14:39 78 102/40 (60) 07/30/17 14:35 68 07/30/17 14:30 66 07/30/17 14:17 72 114/69 (84) 07/30/17 14:16 18 Objective Remarks GENERAL: Well-nourished, well-developed patient. CARDIOVASCULAR: Regular rate and rhythm without murmurs, gallops, or rubs. RESPIRATORY: Breath sounds equal bilaterally. No accessory muscle use. ABDOMEN/GI: Abdomen soft, non-tender. Fundus: Firm, non-tender at umbilicus. GENITOURINARY: Light to moderate bleeding. EXTREMITIES: No cyanosis or edema, non-tender, without signs of DVT. Medications and IVs Current Medications Medications (Trade) Dose Ordered Sig/Cathryn Route Start Time Stop Time Status Last Admin Lactated Ringer's 1,000 ml @ 125 mls/hr Q8H IV 07/30/17 13:27 07/30/17 15:35 Lactated Ringer's 1,000 ml @ 3,000 mls/hr Q20M PRN IV 07/30/17 13:27 Sodium Chloride 500 ml @ 1,000 mls/hr ONCE PRN IV 07/30/17 13:30 07/31/17 13:29 Sodium Chloride 1,000 ml @ 100 mls/hr Q10H PRN IV 07/30/17 13:47 (Xylocaine 1% Inj (50 ml)) 0.1 ml UNSCH X1 PRN I-DERMAL 07/30/17 13:30 08/02/17 13:29 (Bicitra Liq) 30 ml SSIS ARCHITECT PO 07/30/17 13:30 08/03/17 13:29 (fentaNYL INJ) 50 mcg Q1H PRN IV PUSH 07/30/17 13:30 (fentaNYL INJ) 100 mcg Q1H PRN IV PUSH 07/30/17 13:30 07/30/17 13:53 (Xylocaine 1% Inj (50 ml)) 10 ml UNSCH X1 PRN INFIL 07/30/17 13:30 08/01/17 13:29 (Muri-Lube Oil) 10 ml UNSCH PRN TOPICAL 07/30/17 13:30 Oxytocin 500 ml @ 0 mls/hr TITRATE IV 07/30/17 13:30 07/30/17 16:03 Penicillin G Potassium 3128582 units/Sodium Chloride 100 ml @ 200 mls/hr Q4H IV 07/30/17 18:00 (NS Flush) 2 ml BID IV FLUSH 07/30/17 21:00 (NS Flush) 2 ml UNSCH PRN IV FLUSH 07/30/17 18:00 (Tylenol) 650 mg Q4H PRN PO 07/30/17 18:00 07/31/17 02:54 (Motrin) 800 mg Q8H PRN PO 07/30/17 18:00 07/31/17 06:38 (Americaine 20% Top Spr) 1 spray Q4H PRN TOPICAL 07/30/17 18:00 (Tucks Pads) 1 applic QID PRN TOPICAL 07/30/17 18:00 (Albertnia-Colace) 2 tab Q12H PRN PO 07/30/17 18:00 (Mag-Al Plus Susp Liq) 15 ml Q8H PRN PO 07/30/17 18:00 (Zofran Odt) 4 mg Q6H PRN PO 07/30/17 18:00 Miscellaneous Information No systemic narcotics to be given except... UNSCH PRN .XX 07/30/17 18:15 07/31/17 18:14 Miscellaneous Information DO NOT ADMINISTER ANY ANTICOAGUL... UNSCH PRN .XX 07/30/17 18:15 07/31/17 18:14 Fentanyl/ Bupivacaine HCl 100 ml @ 0 mls/hr TITRATE EPIDURAL 07/30/17 18:15 (ePHEDrine/NS 25 MG/5 ML SYR) 10 mg UNSCH PRN IV PUSH 07/30/17 18:15 07/31/17 18:14 (Benadryl) 50 mg Q4H PRN PO 07/30/17 21:30 07/30/17 22:05 Assessment/Plan Assessment and Plan ppd #1 Pt doing well c/o lower back pain, we will add something stronger than cristal pt bonding with infant routine care Discharge Planning [facility] tomorrow Leslie Calhoun Jul 31, 2017 10:17
--- NOTE | 2017-07-31 10:20 | HHI.DS ---
Admission Date Jul 30, 2017 at 12:49 Discharge Date: Aug 01, 2017 Admitting Diagnosis term at 39 weeks induction of labor Diagnosis: (1) Normal vaginal delivery Diagnosis: Principal ICD Codes: O80 - Encounter for full-term uncomplicated delivery Delivery Date: Jul 30, 2017 Vaginal Delivery: Normal : Female Brief History This is a 32-year-old patient who has been miserable for the last 3 weeks with pelvic pressure and pelvic pain. She is now over 39 weeks her cervix is 4 cm and she is requesting induction which I think is reasonable. Hospital Course pt admitted for induction, 39+ week [facility] routine care Pt Condition on Discharge: Good Discharge Disposition: Discharge Home Discharge Instructions Diet Instructions: As Tolerated, No Restrictions Additional Diet Instructions: Drink at least 8 - 16 oz bottles of water a day Activities You Can Perform: Shower Only-No Bath, Sitz Bath Activities to Avoid: Lifting/Bending, Sexual Activity Additional Activity Instruc.: No driving until off pain medications Do not lift anything heavier than your baby in an carrier Follow up Referrals: SECURITY ENGINEER - 2 Weeks @ [facility] Leslie Calhoun Jul 31, 2017 10:20
[2017-07-31] MEDS ORDERED: oxyCODONE/ACETAMINOPHEN 5 MG/325 MG TAB PO PRN (10:30)
[2017-07-31 20:00] VITALS: BP 103/69; PULSE 105; RESP 18; TEMP 98.3; O2SAT 97
[2017-08-01] MEDS: IBUPROFEN 800 MG TAB PO PRN ×2 (07:42→16:47)
[2017-08-01 08:00] VITALS: BP 105/73; PULSE 73; RESP 16; TEMP 97.8; O2SAT 98
[2017-08-01] MEDS: ACETAMINOPHEN 325 MG TAB PO PRN (14:40)
[2017-08-01] MEDS ORDERED: OXYC1TAB63 PO (17:24)
[2017-08-01] MEDS ORDERED: IBUP1TAB7 PO (17:24)
== END 2017-08-01 18:05 | disposition home or self-care (01) | DRG 775 ==
LOC: H2EB 12:49 → H1EA 19:52
PROVIDERS: ADMIT Obstetrics & Gynecology; ATTEND Obstetrics & Gynecology
PROC: 10E0XZZ Delivery of Products of Conception, External Approach (ICD-10-PCS; principal; 2017-07-30)
PROC: 10907ZC Drainage of Amniotic Fluid, Therapeutic from Products of Conception, Via Natural or Artificial Opening (ICD-10-PCS; 2017-07-30)
PROC: 3E033VJ Introduction of Other Hormone into Peripheral Vein, Percutaneous Approach (ICD-10-PCS; 2017-07-30)
DX: O99.824 Streptococcus B carrier state complicating childbirth (principal); O69.81X0 Labor and delivery complicated by cord around neck, without compression, not applicable or unspecified; Z37.0 Single live birth; Z3A.39 39 weeks gestation of pregnancy; M54.5 Low back pain; R05 Cough
CPT/HCPCS: 59025; 80307; 81001; 85025; 86900; 86901; 90715; J2540; J2590; J3010; J7120; Q0163

== ENCOUNTER → 2017-09-11 | Outpatient (CLI) | payer MEDICAID ==
[~2017-09-11] MED LIST changes: -FAMO20TA2 PO; +IBUP1TAB7 PO; +OXYC1TAB63 PO; -POTA1TAB4 PO
[2017-09-11 14:34] LABS: BICARBONATE 29.1 MEQ/L (21.0-32.0); BLOOD UREA NITROGEN 12 MG/DL (7-18); CALCIUM 8.6 MG/DL (8.5-10.1); CHLORIDE 109 MEQ/L (98-107); CREATININE 0.83 MG/DL (0.50-1.00); GLOMERULAR FILTRATION RATE 96 ML/MIN (>89); GLUCOSE,FASTING 68 MG/DL (74-99); SODIUM (NA) 143 MEQ/L (136-145)
[2017-09-11 16:13] LABS: HEMOGLOBIN 12.2 GM/DL (11.6-15.3); MEAN CELL VOLUME 89.9 FL (80.0-100.0); MEAN CORPUSCULAR HEMOGLOBIN 29.5 PG (27.0-34.0); MEAN CORPUSCULAR HGB CONC 32.8 % (32.0-36.0); MEAN PLATELET VOLUME 8.9 FL (7.0-11.0); PLATELET COUNT 324 TH/MM3 (150-450); RED BLOOD COUNT 4.12 MIL/MM3 (4.00-5.30); RED CELL DISTRIBUTION WIDTH 14.3 % (11.6-17.2); WHITE BLOOD COUNT 9.5 TH/MM3 (4.0-11.0)
== END ==
LOC: CPRE 11:51
PROVIDERS: ATTEND Obstetrics & Gynecology
DX: Z01.812 Encounter for preprocedural laboratory examination (principal); Z30.2 Encounter for sterilization
CPT/HCPCS: 36415; 80048; 84703; 85027

== ENCOUNTER → 2017-09-16 | Day surgery (SDC) | payer MEDICAID ==
[~2017-09-16] VITALS: Ht 152.4 cm; Wt 97.7 kg
[~2017-09-16] MED LIST changes: +*morphine SULFATE 4 MG/ML PERIprocedure ONLY ONE; +ACETAMINOPHEN 1000 MG/100 ML 100 ML IV ONE; +BUPIVACAINE/EPINEPHRINE 0.25% 50 ML VIAL ONE; +CHLORHEXIDINE GLUCONATE 2 % 1 PACK (2 CLOTHS) TOPICAL PRN; +DO NOT ADM ANY ANTICOAGULANT DRUGS PRN; +GLYCOPYRROLATE 1 MG/5 ML SYRINGE IV PUSH ONE; +KETOROLAC TROMETHAMINE 30 MG/ML (IVP) VIAL IV PUSH ONE; +LACTATED RINGER'S 1000 ML IV PRN; +LIDOCAINE HCL 1% PF 5 ML SYRINGE OTHER ONE; +METOPROLOL TARTRATE 25 MG TAB PO PRN; +MIDAZOLAM HCL 2 MG/2 ML VIAL ONE; +NEOSTIGMINE 5 MG/5 ML SYRINGE IV PUSH ONE; +ONDANSETRON HCL 4 MG/2 ML VIAL IV ONE; +ONDANSETRON HCL 4 MG/2 ML VIAL IV PUSH PRN; -OXYC1TAB63 PO; +POVIDONE IODINE 5% (ANTISEPSIS KIT) 4 APPLICATIONS EACH NARE PRN; -PRENTAB7; +PROPOFOL 200 MG/20 ML AMP IV ONE; +ROCURONIUM INJ 50 MG/5 ML SYRINGE IV PUSH ONE; +SODIUM CHLORID 0.9% 500 ML IV PRN; +SUGAMMADEX SODIUM 200 MG/2 ML VIAL IV PUSH ONE
[2017-09-16 18:30] VITALS: BP 119/73; PULSE 54; RESP 18; TEMP 97.7; O2SAT 97
--- NOTE | 2017-09-21 09:49 | MP ---
cc: Luis Felipe GALLAGHER DATE OF SURGERY: 09/16/2017. PREOPERATIVE DIAGNOSIS: Desires permanent sterilization. POSTOPERATIVE DIAGNOSIS: Desires permanent sterilization. OPERATIVE PROCEDURE PERFORMED: Laparoscopic bilateral salpingectomy. SURGEON: Luis Felipe Gallagher MD. ANESTHESIA: General. FINDINGS: On examination under anesthesia, the vagina was clean. Cervix was clean. Uterus normal size, shape and consistency. Adnexa negative for masses. The laparoscopic exam revealed normal ovaries, normal tubes, normal uterus, normal anterior and posterior cul-de-sacs. COMPLICATIONS: None. COUNTS: Correct. ESTIMATED BLOOD LOSS: Minimal. DISPOSITION: The patient tolerated the procedure well and went to the recovery room in good condition. DESCRIPTION OF THE PROCEDURE IN DETAIL: The patient was taken to the operating room and identified by name band and verbally and given a general anesthetic and carefully placed in the dorsal lithotomy position and prepped and draped in the usual sterile manner for laparoscopic surgery. An in-and-out catheter was used to drain her urinary bladder. An examination under anesthesia was carried out and a weighted speculum was placed in the vagina. The anterior lip of the cervix was grasped with a single-tooth tenaculum. The cervix was serially dilated and a sharp curetting followed. Hulka clamp was placed and attention was turned to the umbilical area. A small subumbilical incision was made with a 5 mm trocar and a pneumoperitoneum was created with two liters of CO2. Inferolateral to the umbilicus bilaterally we put two more 5 mm trocars in and began at the fimbriated end of the left fallopian tube. Going along the mesosalpinx of the fallopian tube, we removed the entire fallopian tube with the Harmonic scalpel. It was removed through the 5-mm port. This was repeated on the opposite side. Hemostasis was excellent. The air was released. The laparoscope was removed under direct vision and the incisions were repaired with a 4-0 Monocryl in subcuticular manner. She tolerated procedure well and went to the recovery room in good condition. MD GRACE Albrecht/TERRELL /9:57 AM /9:41 AM
--- NOTE | 2017-09-21 15:43 | MP ---
cc: Luis Felipe Gallagher MD DATE OF OPERATION: 09/16/2017 PREOPERATIVE DIAGNOSIS: Desires permanent sterilization. POSTOPERATIVE DIAGNOSIS: Desires permanent sterilization. PROCEDURE: Laparoscopic bilateral salpingectomy ANESTHESIA: General endotracheal intubation SURGEON: Luis Felipe Gallagher MD FINDINGS: Examination under anesthesia, the vagina was clean, the cervix was clean. Uterus normal size and shape and in consistency and freely mobile. The adnexa were without masses. Laparoscopic exam revealed normal tubes, normal ovaries, normal uterus, normal anterior/posterior cul-de-sac. Both tubes were completely removed. COMPLICATIONS: None COUNTS: Correct. ESTIMATED BLOOD LOSS: Minimal DISPOSITION: The patient tolerated the procedure well, went to the recovery room in good condition. PROCEDURE IN DETAIL: The patient was taken to the operating room, identified by name band and verbally given a general anesthetic, prepped and draped in the usual sterile manner in the dorsal lithotomy position for a laparoscopic procedure. Examination under anesthesia was carried out with the above findings and a weighted speculum was placed in the vagina. The anterior lip of the cervix was grasped with a single toothed tenaculum. Cervix serially dilated. A Hulka clamp was placed. Attention was turned to the umbilical area. A small subumbilical incision was made and a 5 mm trocar was used to create a pneumoperitoneum upon entering the abdomen. Inferolateral to the umbilicus bilaterally, we placed two more 5 mm trocars. We began with the patients left tube, grabbed the fimbriated end, take down by the mesosalpinx with a Harmonic scalpel to the level of the uterus and the tube was completely removed through the 5 mm port. This was repeated on the contralateral side. Hemostasis was excellent. Pictures were taken. She tolerated the procedure well. The scope was removed under direct vision. The air was released through the second and third puncture and the skin was repaired with 4-0 Monocryl subcuticular fashion. Luis Felipe Gallagher MD RJV/DL/rr , 09:57 AM , 10:22 AM
== END | disposition home or self-care (01) ==
LOC: HSDC 11:24
PROVIDERS: ATTEND Obstetrics & Gynecology
DX: Z30.2 Encounter for sterilization (principal)
CPT/HCPCS: 00840; 58661; 88302; J0131; J2250; J2270; J3010; J7120; J1885; J2405; J2710